=== PATIENT | male | born 1950 | race Caucasian/White ===

== ENCOUNTER → 2017-09-13 10:21 | Outpatient (CLI) | payer MEDICARE, SELFPAY ==
--- NOTE | 2017-09-13 10:26 | VDLE_ITS ---
Reason For Study: LEG SWELLING RIGHT LEFT GSV is normal. CFV is compressible, spontaneous, phasic, CFV is compressible, spontaneous, phasic, competent, and demonstrates normal competent and demonstrates normal augmentation. augmentation. Acute deep vein thrombosis is noted in the right femoral vein. Acute deep vein thrombosis is noted in the right popliteal vein. Acute deep vein thrombosis is noted in the right peroneal vein. Acute deep vein thrombosis is noted in the right posterior tibial vein. Acute deep vein thrombosis is noted in the right soleus vein. Procedure Exam performed in department. A preliminary report was called and/or faxed to Dr. Khanna. Interpretation Summary Acute deep vein thrombosis is noted in the right femoral vein. Acute deep vein thrombosis is noted in the right popliteal vein. Acute deep vein thrombosis is noted in the right tibio-peroneal trunk. Acute deep vein thrombosis is noted in the right peroneal vein. Acute deep vein thrombosis is noted in the right posterior tibial vein. Acute deep vein thrombosis is noted in the right soleus vein. The right common femoral vein is patent, compressible, and competent. The right greater saphenous vein appears patent and compressible segmentally. Ordering Physician: He Khanna Performed By: Carmela Segovia RVT
== END ==
PROVIDERS: Family Provider Family Medicine; PCP Family Medicine; Visit Provider Family Medicine
DX: M79.89 Other specified soft tissue disorders (principal); R60.9 Edema, unspecified; M79.669 Pain in unspecified lower leg
CPT/HCPCS: 93971

== ENCOUNTER → 2017-10-28 10:59 | Outpatient (CLI) | payer MEDICARE, SELFPAY ==
[2017-10-28 12:52] LABS: Erythrocyte Sedimentation Rate 25 mm/hr (0-20)
== END ==
PROVIDERS: Family Provider Family Medicine; PCP Family Medicine; Visit Provider Physician Assistant Surgical
DX: S82.62XK Displaced fracture of lateral malleolus of left fibula, subsequent encounter for closed fracture with nonunion (principal)
CPT/HCPCS: 36415; 85652; 86140

== ENCOUNTER → 2017-11-28 09:40 | Outpatient (CLI) | payer MEDICARE, SELFPAY ==
--- NOTE | 2017-11-28 09:40 | DT_ITS ---
This patient was seen during an EMR downtime November 28, 2017 - December 05, 2017. This patient may have a combination of paper and electronic documentation or all paper documentation. All documentation is viewable within the e-chart portion of [facility] for each patient visit.
[2017-12-04 03:10] LABS: BUN 17 mg/dL (7-18); BUN/Creat Ratio 13.2 RATIO (10-20); Creatinine, Serum 1.29 mg/dL (0.70-1.30); EST Glomerular Filtration Rate 59 mL/min (>60); Est Glom Filt Rate - Afr Amer 72 mL/min (>60); Glucose 188 mg/dL (74-106)
[2017-12-04 03:11] LABS: ALB/GLOB Ratio 0.9 RATIO (0.9-2.4); AST(SGOT) 17 U/L (15-37); Alanine Aminotransfer ALT/SGPT 31 U/L (16-61); Albumin, Serum 3.7 g/dL (3.2-5.0); Alkaline Phosphatase 105 U/L (45-117); Anion Gap 11 (5-15); Calcium,Total 8.6 mg/dL (8.5-10.1); Chloride 107 mmol/L (98-107); Cholesterol 209 mg/dL (200); High Density Lipoprotein 30 mg/dL; Potassium 3.9 mmol/L (3.5-5.1); Protein, Total 7.7 g/dL (6.4-8.2); Sodium Level 141 mmol/L (136-145); Triglycerides 278 mg/dL; Very Low Density Lipoprotein 56 mg/dL (5-40)
[2017-12-04 03:12] LABS: Hemoglobin A1c 8.3 % (4.2-6.3)
[2017-12-04 04:09] LABS: Hematocrit 43.8 % (40-54); Mean Corp Hgb Conc 34.2 g/gl (32-36); Mean Corpuscular Hgb 27.7 pg (27.0-32.0); Mean Platelet Vol. 11.7 fl (6.2-12.0); POSITIVE COUNT NO; POSITIVE DIFFERENTIAL NO; POSITIVE MORPHOLOGY NO; Platelet Count 169 K/mm3 (150-450); RBC Distribution Width CV 13.4 % (11.6-14.6); RBC Distribution Width SD 39.2 fl (35.1-43.9); Red Blood Count 5.41 M/mm3 (4.6-6.2); White Blood Count 6.2 K/mm3 (4.4-11.0)
[2017-12-04 04:10] LABS: Absolute Lymphocyte Count 1.33 X10^3/ul (0.83-4.51); Basophil# 0.01 X10^3/uL; Basophil% 0.2 % (0-1); Eosinophil# 0.15 X10^3/uL; Eosinophils% 2.4 % (0-5); Lymphocyte # 1.33 X10^3/ul (4.0); Lymphocyte % 21.5 % (19-41); Monocyte# 0.66 X10^3/uL; Monocyte% 10.6 % (0-10); Neutrophil # 4.02 X10^3/uL (2.7-7.7); Neutrophil % 64.8 % (47-70)
== END ==
PROVIDERS: Family Provider Family Medicine; PCP Family Medicine; Visit Provider Family Medicine
DX: E11.9 Type 2 diabetes mellitus without complications (principal); I10 Essential (primary) hypertension; E78.5 Hyperlipidemia, unspecified
CPT/HCPCS: 36415; 80053; 80061; 83036; 85025

== ENCOUNTER → 2017-12-14 09:00 | Outpatient (CLI) | payer MEDICARE, SELFPAY ==
[2017-12-14 12:19] LABS: Absolute Lymphocyte Count 1.44 X10^3/ul (0.83-4.51); Absolute Neutrophil Count 3.6 X10^3/uL (2.0-7.7); Basophil# 0.01 X10^3/uL; Basophil% 0.2 % (0-1); Eosinophil# 0.18 X10^3/uL; Eosinophils% 3.1 % (0-5); Hematocrit 45.1 % (40-54); Hemoglobin 15.2 g/dl (13.0-16.5); Lymphocyte # 1.44 X10^3/ul (4.0); Lymphocyte % 24.7 % (19-41); Mean Corp Hgb Conc 33.7 g/gl (32-36); Mean Corpuscular Hgb 27.5 pg (27.0-32.0); Mean Corpuscular Volume 81.6 fL (80-94); Mean Platelet Vol. 10.8 fl (6.2-12.0); Monocyte# 0.59 X10^3/uL; Monocyte% 10.1 % (0-10); Neutrophil # 3.61 X10^3/uL (2.7-7.7); Neutrophil % 61.7 % (47-70); POSITIVE COUNT NO; POSITIVE DIFFERENTIAL NO; POSITIVE MORPHOLOGY NO; Platelet Count 168 K/mm3 (150-450); RBC Distribution Width CV 13.4 % (11.6-14.6); RBC Distribution Width SD 39.8 fl (35.1-43.9); Red Blood Count 5.53 M/mm3 (4.6-6.2); White Blood Count 5.8 K/mm3 (4.4-11.0)
[2017-12-14 12:37] LABS: International Normalized Ratio 1.8; Prothrombin Time (Protime)PT. 21.2 SECONDS (11.7-14.9)
[2017-12-14 12:54] LABS: Anion Gap 8 (5-15); BUN 17 mg/dL (7-18); BUN/Creat Ratio 11.6 RATIO (10-20); Calcium,Total 9.3 mg/dL (8.5-10.1); Chloride 101 mmol/L (98-107); Creatinine, Serum 1.46 mg/dL (0.70-1.30); EST Glomerular Filtration Rate 51 mL/min (>60); Est Glom Filt Rate - Afr Amer 62 mL/min (>60); Glucose 200 mg/dL (74-106); Sodium Level 135 mmol/L (136-145)
== END ==
PROVIDERS: Family Provider Family Medicine; PCP Family Medicine; Visit Provider Family Medicine
DX: M10.9 Gout, unspecified (principal); R23.3 Spontaneous ecchymoses; I82.4Z1 Acute embolism and thrombosis of unspecified deep veins of right distal lower extremity; E11.9 Type 2 diabetes mellitus without complications
CPT/HCPCS: 36415; 80048; 84550; 85025; 85610

== ENCOUNTER → 2017-12-16 12:45 | Outpatient (CLI) | payer MEDICARE, SELFPAY ==
--- NOTE | 2017-12-16 12:47 | VDLE_ITS ---
Reason For Study: F/U DVT RLE RIGHT LEFT GSV is normal. CFV is compressible, spontaneous, phasic, CFV is compressible, spontaneous, phasic, competent, and demonstrates normal competent and demonstrates normal augmentation. augmentation. PTV is compressible. RT PerV is compressible. Rt FV, Rt PopV, and Rt T/P trunk are dilated and non compressible Rt SoleusV is compressible. Procedure Exam performed in department. A preliminary report was called and/or faxed to Dr. Khanna. Interpretation Summary Acute deep vein thrombosis is noted in the right femoral vein. Acute deep vein thrombosis is noted in the right popliteal vein. Acute deep vein thrombosis is noted in the right tibio-peroneal trunk. The remainder of the right lower extremity deep venous system is patent and compressible. The right common femoral vein is competent. The right greater saphenous vein appears patent and compressible segmentally. There has been improvement since a prior study on 09/13/2017. Ordering Physician: He Khanna Referring Physician: He Khanna Performed By: Patti Chávez, BRAD, RVT
== END ==
PROVIDERS: Family Provider Family Medicine; PCP Family Medicine; Visit Provider Family Medicine
DX: I82.4Z1 Acute embolism and thrombosis of unspecified deep veins of right distal lower extremity (principal)
CPT/HCPCS: 93971

== ENCOUNTER → 2018-02-21 09:25 | Outpatient (CLI) | payer MEDICARE, SELFPAY ==
[2018-02-21 12:28] LABS: Microalbumin:Creatinine Ratio 59.9 mg/g CRE (<30 mg/g CRE)
[2018-02-21 12:36] LABS: Cholesterol 200 mg/dL (200); High Density Lipoprotein 27 mg/dL; Triglycerides 246 mg/dL; Very Low Density Lipoprotein 49 mg/dL (5-40)
[2018-02-21 12:46] LABS: Hemoglobin A1c 7.6 % (4.2-6.3)
== END ==
LOC: LAB.FUTURE 08-23 00:35 → BFHLAB 03-19 13:55
PROVIDERS: Family Provider Family Medicine; PCP Family Medicine; Visit Provider Family Medicine
DX: E11.9 Type 2 diabetes mellitus without complications (principal); E78.5 Hyperlipidemia, unspecified
CPT/HCPCS: 36415; 80061; 82043; 82570; 83036

== ENCOUNTER → 2018-06-28 11:26 | Outpatient (CLI) | payer MEDICARE, SELFPAY ==
[2018-06-28 15:58] LABS: Anion Gap 8 (5-15); BUN 21 mg/dL (7-18); BUN/Creat Ratio 15.1 RATIO (10-20); Calcium,Total 8.8 mg/dL (8.5-10.1); Chloride 107 mmol/L (98-107); Cholesterol 207 mg/dL (200); Creatinine, Serum 1.39 mg/dL (0.70-1.30); EST Glomerular Filtration Rate 54 mL/min (>60); Est Glom Filt Rate - Afr Amer 65 mL/min (>60); Glucose 129 mg/dL (74-106); High Density Lipoprotein 31 mg/dL; Potassium 4.7 mmol/L (3.5-5.1); Sodium Level 140 mmol/L (136-145); Triglycerides 180 mg/dL; Very Low Density Lipoprotein 36 mg/dL (5-40)
[2018-06-28 16:04] LABS: Hemoglobin A1c 7.6 % (4.2-6.3)
[2018-06-28 16:08] LABS: Microalbumin:Creatinine Ratio 115.7 mg/g CRE (<30 mg/g CRE)
== END ==
LOC: LAB.FUTURE 01-17 01:46 → BFHLAB 03-19 13:54
PROVIDERS: Family Provider Family Medicine; PCP Family Medicine; Visit Provider Family Medicine
DX: E11.21 Type 2 diabetes mellitus with diabetic nephropathy (principal); I12.9 Hypertensive chronic kidney disease with stage 1 through stage 4 chronic kidney disease, or unspecified chronic kidney disease; E11.22 Type 2 diabetes mellitus with diabetic chronic kidney disease; N18.3 Chronic kidney disease, stage 3 (moderate); E78.5 Hyperlipidemia, unspecified; I82.4Z1 Acute embolism and thrombosis of unspecified deep veins of right distal lower extremity
CPT/HCPCS: 36415; 80048; 80061; 82043; 82570; 83036

== ENCOUNTER → 2018-07-17 09:40 | Outpatient (CLI) | payer MEDICARE, SELFPAY ==
--- NOTE | 2018-07-17 09:43 | VDLE_ITS ---
Reason For Study: CHRONIC DVT RIGHT GSV is normal. CFV is compressible, spontaneous, phasic, competent and demonstrates normal augmentation. PTV is compressible. RT PerV is compressible. Rt FV, POP V and T/P Trunk are NONCOMPRESSIBLE with intraluminal echoes consistent with chronic DVT. Procedure Exam performed in department. A preliminary report was called and/or faxed to Dr Khanna. Interpretation Summary Chronic venous changes are noted in the right femoral vein, popliteal vein, and tibio-peroneal trunk, which are non-compressible and demonstrate intraluminal echogenicity. The remainder of the right lower extremity deep venous system is patent and compressible. The right greater saphenous vein appears patent and compressible segmentally. Ordering Physician: He Khanna Referring Physician: He Khanna Performed By: Trini Zacarias, BRAD, RVT
--- OUTSIDE RECORDS SUMMARY | 2018-09-18 19:44 | XMS RPT_ITS ---
:1950 Author Organization OHIP Care Team Providers Name Role Phone He Khanna Attending Unavailable He Khanna Referring Unavailable He Khanna Primary Care Unavailable He Khanna Attending Unavailable He Khanna Primary Care Unavailable Jose Yusuf PA-C Attending Unavailable Jose Yusuf PA-C Referring Unavailable He Khanna Primary Care Unavailable He Khanna Attending Unavailable He Khanna Referring Unavailable He Khanna Primary Care Unavailable He Khanna Attending Unavailable He Khanna Primary Care Unavailable He Khanna Attending Unavailable He Khanna Primary Care Unavailable He Khanna Attending Unavailable He Khanna Referring Unavailable He Khanna Primary Care Unavailable He Khanna Attending Unavailable He Khanna Primary Care Unavailable He Khanna Attending Unavailable He Khanna Primary Care Unavailable PROBLEMS PROBLEMS DATE TYPE CONDITION / CODE ATTENDING STATUS SOURCE 02/20/2018 Unknown E11.9 - Type 2 He Khanna Active [facility] diabetes mellitus [facility] without Hospital complications / Repository E11.9(ICD-10) 02/20/2018 Unknown E78.5 - He Khanna Active [facility] Hyperlipidemia, Community unspecified / Hospital E78.5(ICD-10) Repository 12/16/2017 Unknown I82.4Z1 - Acute He Khanna Active [facility] embolism and Community thrombosis of Hospital unspecified deep Repository veins of right distal lower extremity / I82.4Z1(ICD-10) 09/13/2017 Unknown R60.9 - Edema, He Khanna Active [place] unspecified / Community R60.9(ICD-10) Hospital Repository 09/13/2017 Unknown M79.669 - Pain in He Khanna Active [place] unspecified lower Community leg / Hospital M79.669(ICD-10) Repository PROCEDURES PROCEDURES No Procedure Records FoundRESULTS RESULTS VENOUS DUPLEX LOWER Observed: 07/18/2018 Status: F Source: [place] EXTREMITY 4:03 PM [facility] REPOSITORY [facility] Cardiovascular Services [address] [place] [address] Venous Duplex US, Unilateral 07/17/18 0955 MR#: [id number] Acct: [id number] Name: SILVIANO MUELLER Nakia Rep #: [id number] : 1950 68 From: Alex Parish MD Attending Dr: He Khanna DO Status: REG CLI Ordering Dr: He Khanna DO Date: 07/17/18 Location: CVS Sex: M C Admitted: Reason For Study: CHRONIC DVT RIGHT GSV is normal. CFV is compressible, spontaneous, phasic, competent and demonstrates normal augmentation. PTV is compressible. RT PerV is compressible. Rt FV, POP V and T/P Trunk are NONCOMPRESSIBLE with intraluminal echoes consistent with chronic DVT. Procedure Exam performed in department. A preliminary report was called and/or faxed to Dr Khanna. Interpretation Summary Chronic venous changes are noted in the right femoral vein, popliteal vein, and tibio-peroneal trunk, which are non-compressible and demonstrate intraluminal echogenicity. The remainder of the right lower extremity deep venous system is patent and compressible. The right greater saphenous vein appears patent and compressible segmentally. Ordering Physician: He Khanna Referring Physician: He Khanna Performed By: Trini Zacarias, BRAD, RVT 07/18/18 1603 Date Alex Parish MD CC: He Khanna DO Date Dictated: 07/17/18 0955 Date Transcribed: 07/18/181602 Rn Bariatric: Signed BASIC METABOLIC Collected: 06/28/2018 Status: F Source: [place] PROFILE (BMP) 11:31 AM [facility] REPOSITORY TYPE CODE TESTS RESULT OUT OF RANGE REFERENCE UNITS LAB L501.0100 74-106 mg/dL High GLU 129 Result Comment: Fasting Glucose result greater than or equal to 126 mg/dL suggests DIABETES MELLITUS per A.D.A. criteria. Please note revised GLUCOSE reference range effective 2017. LAB L501.1000 7-18 mg/dL High BUN 21 LAB L501.1100 0.70-1.30 mg/dL High CREAT,SERUM 1.39 Result Comment: The validity of the calculated GFR AND GFRAA in patients over 70 years has not been determined. Clinical correlation is essential. LAB L501.1110 >60 mL/min Low EST GFR 54 Result Comment: Non- GFR Calc LAB L501.1115 >60 mL/min Normal EST GFR - AA 65 Result Comment: GFR Calc LAB L501.1300 10-20 RATIO Normal BUN/CRE 15.1 LAB L501.2200 8.5-10.1 mg/dL CA Normal 8.8 LAB L501.5300 136-145 mmol/L NA Normal 140 LAB L501.5600 3.5-5.1 mmol/L K Normal 4.7 LAB L501.5900 98-107 mmol/L CL Normal 107 LAB L501.6100 21.0-32.0 mmol/L Normal CO2 25.0 LAB L501.6200 5-15 Normal GAP 8 Performed By: #### L500.2500, L500.4100 #### [facility] [address] [place], [place], [id number] LIPID PROFILE Collected: 06/28/2018 Status: F Source: [place] 11:31 AM [facility] REPOSITORY TYPE CODE TESTS RESULT OUT OF RANGE REFERENCE UNITS LAB L501.4900 200 mg/dL High CHOL 207 Result Comment: <200 mg/dL Desirable 200-240 mg/dL Borderline >240 mg/dL High Risk LAB L501.5000 mg/dL Normal TRIG 180 Result Comment: The drugs N-Acetylcysteine and Metamizole may falsely depress this assay. Serum Triglycerides Reference Interval Normal <150 mg/dL Borderline high 150 - 199 mg/dL High 200 - 499 mg/dL Very High > or = 500 mg/dL LAB L501.6400 mg/dL Low HDL 31 Result Comment: The drugs N-Acetylcysteine and Metamizole may falsely depress this assay. Reference Range HDL <40 mg/dL Low HDL Cholesterol HDL >or= 60 mg/dL High HDL Cholesterol LAB L501.6500 0-130 mg/dL High LDL 140 LAB L501.6600 5-40 mg/dL Normal VLDL 36 Performed By: #### L500.2500, L500.4100 #### [facility] [address] [place], [place], [id number] HEMOGLOBIN A1C Collected: 06/28/2018 Status: F Source: [place] 11:31 AM [facility] REPOSITORY TYPE CODE TESTS RESULT OUT OF RANGE REFERENCE UNITS LAB L501.9985 4.2-6.3 % High HGB A1C 7.6 Performed By: #### L501.9985 #### [facility] [address] [place], [address] MICROALB:CREAT Collected: 06/28/2018 Status: F Source: [place] RATIO,RANDOM UR 11:31 AM [facility] REPOSITORY TYPE CODE TESTS RESULT OUT OF RANGE REFERENCE UNITS LAB L501.1200 NO RANGE EST. mg/dL Normal UR CREAT 134.00 LAB L502.0500 NO RANGE EST. mg/L Normal 155.0 MICROALBUMIN ,UR LAB L502.0600 <30 mg/g CRE mg/g CRE High 115.7 MALB:CREAT Performed By: #### L502.0250 #### [facility] [address] [place], [address] MICROALB:CREAT Collected: 02/21/2018 Status: F Source: [facility],[place] UR 9:27 AM [facility] REPOSITORY TYPE CODE TESTS RESULT OUT OF RANGE REFERENCE UNITS LAB L501.1200 NO RANGE EST. mg/dL Normal UR CREAT 227.00 LAB L502.0500 NO RANGE EST. mg/L Normal 136.0 MICROALBUMIN ,UR LAB L502.0600 <30 mg/g CRE mg/g CRE High 59.9 MALB:CREAT Performed By: #### L502.0250 #### [facility] [address] [place], [address] LIPID PROFILE Collected: 02/21/2018 Status: F Source: [place] 9:27 AM [facility] REPOSITORY TYPE CODE TESTS RESULT OUT OF RANGE REFERENCE UNITS LAB L501.4900 200 mg/dL Normal CHOL 200 Result Comment: <200 mg/dL Desirable 200-240 mg/dL Borderline >240 mg/dL High Risk LAB L501.5000 mg/dL High TRIG 246 Result Comment: The drugs N-Acetylcysteine and Metamizole may falsely depress this assay. Serum Triglycerides Reference Interval Normal <150 mg/dL Borderline high 150 - 199 mg/dL High 200 - 499 mg/dL Very High > or = 500 mg/dL LAB L501.6400 mg/dL Low HDL 27 Result Comment: The drugs N-Acetylcysteine and Metamizole may falsely depress this assay. Reference Range HDL <40 mg/dL Low HDL Cholesterol HDL >or= 60 mg/dL High HDL Cholesterol LAB L501.6500 0-130 mg/dL Normal LDL 124 LAB L501.6600 5-40 mg/dL High VLDL 49 Performed By: #### L500.4100 #### [facility] [address] [place], [address] HEMOGLOBIN A1C Collected: 02/21/2018 Status: F Source: [place] 9:27 AM [facility] REPOSITORY TYPE CODE TESTS RESULT OUT OF RANGE REFERENCE UNITS LAB L501.9985 4.2-6.3 % High HGB A1C 7.6 Performed By: #### L501.9985 #### [facility] [address] [place], [address] VENOUS DUPLEX LOWER Observed: 12/16/2017 Status: F Source: [place] EXTREMITY 2:07 PM [facility] REPOSITORY [facility] Cardiovascular Services [address] [place] [address] Venous Duplex US, Unilateral 12/16/17 1248 MR#: [id number] Acct: [id number] Name: SILVIANO MUELLER Rep #: [id number] : 1950 67 From: Alex Parish MD Attending Dr: He Khanna DO Status: REG CLI Ordering Dr: He Khanna DO Date: 12/16/17 Location: CVS Sex: M C Admitted: Reason For Study: F/U DVT RLE RIGHT LEFT GSV is normal. CFV is compressible, spontaneous, phasic, CFV is compressible, spontaneous, phasic, competent, and demonstrates normal competent and demonstrates normal augmentation. augmentation. PTV is compressible. RT PerV is compressible. Rt FV, Rt PopV, and Rt T/P trunk are dilated and non compressible Rt SoleusV is compressible. Procedure Exam performed in department. A preliminary report was called and/or faxed to Dr. Khanna. Interpretation Summary Acute deep vein thrombosis is noted in the right femoral vein. Acute deep vein thrombosis is noted in the right popliteal vein. Acute deep vein thrombosis is noted in the right tibio-peroneal trunk. The remainder of the right lower extremity deep venous system is patent and compressible. The right common femoral vein is competent. The right greater saphenous vein appears patent and compressible segmentally. There has been improvement since a prior study on 09/13/2017. Ordering Physician: He Khanna Referring Physician: He Khanna Performed By: Patti Chávez RDCS, RVT 12/16/17 1407 Date Alex Parish MD CC: He Khanna DO Date Dictated: 12/16/17 1248 Date Transcribed: 12/16/17 1407 Rn Bariatric: Signed DOWNTIME REPORT Observed: 12/15/2017 Status: F Source: [place] 1:17 PM [facility] REPOSITORY [facility] Medical Records Department [address] [place] [address] Downtime Report MR#: [id number] Acct: [id number] Name: SILVIANO MUELLER Rep #: [id number] : 1950 67 From: Asad Guevara PCP: He Khanna DO Status: REG CLI This patient was seen during an EMR downtime November 28, 2017 - December 05, 2017. This patient may have a combination of paper and electronic documentation or all paper documentation. All documentation is viewable within the e-chart portion of [facility] for each patient visit. CBC W/DIFF, AUTOMATED Collected: 12/14/2017 Status: F Source: [place] 9:02 AM [facility] REPOSITORY TYPE CODE TESTS RESULT OUT OF RANGE REFERENCE UNITS LAB L100.1000 4.4-11.0 K/mm3 Normal WBC 5.8 LAB L100.1200 4.6-6.2 M/mm3 Normal RBC 5.53 LAB L100.1300 13.0-16.5 g/dl Normal HGB 15.2 LAB L100.1400 40-54 % Normal HCT 45.1 LAB L100.1500 80-94 fL Normal MCV 81.6 LAB L100.1600 27.0-32.0 pg Normal MCH 27.5 LAB L100.1700 32-36 g/gl Normal MCHC 33.7 LAB L100.1810 11.6-14.6 % Normal RDW CV 13.4 LAB L100.1820 35.1-43.9 fl Normal RDW SD 39.8 LAB L100.1900 150-450 K/mm3 Normal PLT 168 LAB L100.2000 6.2-12.0 fl Normal MPV 10.8 LAB L100.2100 47-70 % Normal NEUT% 61.7 LAB L100.2200 19-41 % Normal LY% 24.7 LAB L100.2300 0-10 % High MONO% 10.1 LAB L100.2400 0-5 % Normal EO% 3.1 LAB L100.2500 0-1 % Normal BASO% 0.2 LAB L100.2550 0.0-0.9 % Normal IM GRAN % 0.200 Result Comment: IG% - Immature Granulocytes (promyelocytes, myelocytes and metamyelocytes) > 1% indicates that a LEFT SHIFT is Present. LAB L100.2620 2.0-7.7 X10 3/uL Normal Absolute Neut 3.6 LAB L100.2720 0.83-4.51 X10 3/ul Normal Absolute Lymph 1.44 Performed By: #### L100.0100 #### [facility] [address] [facility] [place], [place], [address] PROTHROMBIN TIME W/INR Collected: 12/14/2017 Status: F Source: [place] 9:02 AM [facility] REPOSITORY TYPE CODE TESTS RESULT OUT OF RANGE REFERENCE UNITS LAB L300.4150 11.7-14.9 SECONDS High PROTIME 21.2 LAB L300.4200 Normal INR 1.8 Performed By: #### L300.3900 #### [facility] [address] [facility] [place], [place], [address] BASIC METABOLIC Collected: 12/14/2017 Status: F Source: [place] PROFILE (BMP) 9:02 AM [facility] REPOSITORY TYPE CODE TESTS RESULT OUT OF RANGE REFERENCE UNITS LAB L501.0100 74-106 mg/dL High GLU 200 Result Comment: Glucose result greater than or equal to 200 mg/dL suggests DIABETES MELLITUS per A.D.A. criteria. Please note revised GLUCOSE reference range effective 2017. LAB L501.1000 7-18 mg/dL Normal BUN 17 LAB L501.1100 0.70-1.30 mg/dL High CREAT,SERUM 1.46 Result Comment: The validity of the calculated GFR AND GFRAA in patients over 70 years has not been determined. Clinical correlation is essential. LAB L501.1110 >60 mL/min Low EST GFR 51 Result Comment: Non- GFR Calc LAB L501.1115 >60 mL/min Normal EST GFR - AA 62 Result Comment: GFR Calc LAB L501.1300 10-20 RATIO Normal BUN/CRE 11.6 LAB L501.2200 8.5-10.1 mg/dL CA Normal 9.3 LAB L501.5300 136-145 mmol/L Low NA 135 LAB L501.5600 3.5-5.1 mmol/L K Normal 4.0 LAB L501.5900 98-107 mmol/L CL Normal 101 LAB L501.6100 21.0-32.0 mmol/L Normal CO2 26.0 LAB L501.6200 5-15 Normal GAP 8 Performed By: #### L500.2500, L501.1400 #### [facility] [address] [place], [place], [address] URIC ACID Collected: 12/14/2017 Status: F Source: [place] 9:02 AM [facility] REPOSITORY TYPE CODE TESTS RESULT OUT OF RANGE REFERENCE UNITS LAB L501.1400 3.5-7.2 mg/dL High URIC 8.0 Result Comment: The drugs N-Acetylcysteine and Metamizole may falsely depress this assay. Performed By: #### L500.2500, L501.1400 #### [facility] [address] [place], [address] COMPREHENSIVE METABOLIC Collected: 11/28/2017 Status: F Source: [place] MANNY 9:40 AM [facility] REPOSITORY Order Comment: RESULT(S) PREVIOUSLY REPORTED ON MANUAL REQUISITION DURING DOWNTIME. TYPE CODE TESTS RESULT OUT OF RANGE REFERENCE UNITS LAB L501.0100 74-106 mg/dL High GLU 188 Result Comment: Fasting Glucose result greater than or equal to 126 mg/dL suggests DIABETES MELLITUS per A.D.A. criteria. Please note revised GLUCOSE reference range effective 2017. LAB L501.1000 7-18 mg/dL Normal BUN 17 LAB L501.1100 0.70-1.30 mg/dL Normal CREAT,SERUM 1.29 Result Comment: The validity of the calculated GFR AND GFRAA in patients over 70 years has not been determined. Clinical correlation is essential. LAB L501.1110 >60 mL/min Low EST GFR 59 LAB L501.1115 >60 mL/min Normal EST GFR - AA 72 LAB L501.1300 10-20 RATIO Normal BUN/CRE 13.2 LAB L501.1500 6.4-8.2 g/dL Normal T PROT 7.7 LAB L501.1800 3.2-5.0 g/dL Normal ALB 3.7 LAB L501.1950 2.2-4.2 g/dL Normal GLOB 4.0 LAB L501.2000 0.9-2.4 RATIO Normal A/G 0.9 LAB L501.2200 8.5-10.1 mg/dL Normal CA 8.6 LAB L501.4100 15-37 U/L Normal AST 17 LAB L501.4305 45-117 U/L Normal ALK P 105 LAB L501.4405 16-61 U/L Normal ALT 31 LAB L501.4600 0.20-1.00 mg/dL Normal T BILI 1.00 LAB L501.5300 136-145 mmol/L Normal NA 141 LAB L501.5600 3.5-5.1 mmol/L Normal K 3.9 LAB L501.5900 98-107 mmol/L Normal CL 107 LAB L501.6100 21.0-32.0 mmol/L Normal CO2 23.0 LAB L501.6200 5-15 Normal GAP 11 Performed By: #### L500.4050, L500.4100 #### [facility] [address] [place], [address] LIPID PROFILE Collected: 11/28/2017 Status: F Source: [place] 9:40 AM [facility] REPOSITORY Order Comment: RESULT(S) PREVIOUSLY REPORTED ON MANUAL REQUISITION DURING DOWNTIME. TYPE CODE TESTS RESULT OUT OF RANGE REFERENCE UNITS LAB L501.4900 200 mg/dL High CHOL 209 Result Comment: <200 mg/dL Desirable 200-240 mg/dL Borderline >240 mg/dL High Risk LAB L501.5000 mg/dL High TRIG 278 Result Comment: The drugs N-Acetylcysteine and Metamizole may falsely depress this assay. Serum Triglycerides Reference Interval Normal <150 mg/dL Borderline high 150 - 199 mg/dL High 200 - 499 mg/dL Very High > or = 500 mg/dL LAB L501.6400 mg/dL Low HDL 30 Result Comment: The drugs N-Acetylcysteine and Metamizole may falsely depress this assay. Reference Range HDL <40 mg/dL Low HDL Cholesterol HDL >or= 60 mg/dL High HDL Cholesterol LAB L501.6500 0-130 mg/dL Normal LDL 123 LAB L501.6600 5-40 mg/dL High VLDL 56 Performed By: #### L500.4050, L500.4100 #### [facility] [address] [place], [address] HEMOGLOBIN A1C Collected: 11/28/2017 Status: F Source: [place] 9:40 AM [facility] REPOSITORY Order Comment: RESULT(S) PREVIOUSLY REPORTED ON MANUAL REQUISITION DURING DOWNTIME. TYPE CODE TESTS RESULT OUT OF RANGE REFERENCE UNITS LAB L501.9985 4.2-6.3 % High HGB A1C 8.3 Performed By: #### L501.9985 #### [facility] [address] [place], [address] CBC W/DIFF, AUTOMATED Collected: 11/28/2017 Status: F Source: [place] 9:40 AM [facility] REPOSITORY Order Comment: RESULT(S) PREVIOUSLY REPORTED ON MANUAL REQUISITION DURING DOWNTIME. TYPE CODE TESTS RESULT OUT OF RANGE REFERENCE UNITS LAB L100.1000 4.4-11.0 K/mm3 Normal WBC 6.2 LAB L100.1200 4.6-6.2 M/mm3 Normal RBC 5.41 LAB L100.1300 13.0-16.5 g/dl Normal HGB 15.0 LAB L100.1400 40-54 % Normal HCT 43.8 LAB L100.1500 80-94 fL Normal MCV 81.0 LAB L100.1600 27.0-32.0 pg Normal MCH 27.7 LAB L100.1700 32-36 g/gl Normal MCHC 34.2 LAB L100.1810 11.6-14.6 % Normal RDW CV 13.4 LAB L100.1820 35.1-43.9 fl Normal RDW SD 39.2 LAB L100.1900 150-450 K/mm3 Normal PLT 169 LAB L100.2000 6.2-12.0 fl Normal MPV 11.7 LAB L100.2100 47-70 % Normal NEUT% 64.8 LAB L100.2200 19-41 % Normal LY% 21.5 LAB L100.2300 0-10 % High MONO% 10.6 LAB L100.2400 0-5 % Normal EO% 2.4 LAB L100.2500 0-1 % Normal BASO% 0.2 LAB L100.2550 0.0-0.9 % Normal IM GRAN % 0.500 Result Comment: IG% - Immature Granulocytes (promyelocytes, myelocytes and metamyelocytes) > 1% indicates that a LEFT SHIFT is Present. LAB L100.2620 2.0-7.7 X10 3/uL Normal Absolute Neut 4.0 LAB L100.2720 0.83-4.51 X10 3/ul Normal Absolute Lymph 1.33 Performed By: #### L100.0100 #### [facility] [address] [place], [place], [address] ERYTHROCYTE SED RATE Collected: 10/28/2017 Status: F Source: [place] 11:05 AM [facility] REPOSITORY TYPE CODE TESTS RESULT OUT OF RANGE REFERENCE UNITS LAB L102.0000 0-20 mm/hr High SED RATE 25 Performed By: #### L101.9900 #### [facility] [address] [place], [address] CRP Collected: 10/28/2017 Status: F Source: [place] 11:05 AM [facility] REPOSITORY TYPE CODE TESTS RESULT OUT OF RANGE REFERENCE UNITS LAB L501.6710 0.0-3.0 mg/L High 11.60 C-REACTIVE PROT Result Comment: C-Reactive Protein (CRP) provides useful information for the diagnosis, therapy and monitoring of inflammatory processes and associated diseases. For the evaluation of Relative Risk for Cardiovascular Disease, a High Sensitivity CRP (HSCRP) should be ordered. Performed By: #### L501.6710 #### [facility] [address] [place], [address] VENOUS DUPLEX LOWER Observed: 09/15/2017 Status: F Source: [place] EXTREMITY 8:11 AM [facility] REPOSITORY [facility] Cardiovascular Services [address] [place] [address] Venous Duplex US, Unilateral 09/13/17 1030 MR#: [id number] Acct: [id number] Name: MATTYMERCEDESSILVIANO Nakia Rep #: [id number] : 1950 67 From: Alex Parish MD Attending Dr: He Khanna DO Status: REG CLI Ordering Dr: He Khanna DO Date: 09/13/17 Location: CVS Sex: M C Admitted: Reason For Study: LEG SWELLING RIGHT LEFT GSV is normal. CFV is compressible, spontaneous, phasic, CFV is compressible, spontaneous, phasic, competent, and demonstrates normal competent and demonstrates normal augmentation. augmentation. Acute deep vein thrombosis is noted in the right femoral vein. Acute deep vein thrombosis is noted in the right popliteal vein. Acute deep vein thrombosis is noted in the right peroneal vein. Acute deep vein thrombosis is noted in the right posterior tibial vein. Acute deep vein thrombosis is noted in the right soleus vein. Procedure Exam performed in department. A preliminary report was called and/or faxed to Dr. Khanna. Interpretation Summary Acute deep vein thrombosis is noted in the right femoral vein. Acute deep vein thrombosis is noted in the right popliteal vein. Acute deep vein thrombosis is noted in the right tibio-peroneal trunk. Acute deep vein thrombosis is noted in the right peroneal vein. Acute deep vein thrombosis is noted in the right posterior tibial vein. Acute deep vein thrombosis is noted in the right soleus vein. The right common femoral vein is patent, compressible, and competent. The right greater saphenous vein appears patent and compressible segmentally. Ordering Physician: He Khanna Performed By: Carmela Segovia RVT 09/15/17 0811 Date Alex Parish MD CC: He Khanna DO Date Dictated: 09/13/17 1030 Date Transcribed: 09/15/17 0811 Rn Bariatric: Signed ALLERGIES ALLERGIES DATE TYPE / CODE NAME / CODE REACTION SEVERITY SOURCE 12/02/2016 Drug Penicillins/ Unknown Unknown [facility] Allergy/4160 [id number]([facility] 15137(SNOMED XNORM) Repository CT) ENCOUNTERS ENCOUNTERS ADMIT/DISCHARGE ACCOUNT ADMITTING ENCOUNTER LOCATION SOURCE NUMBER CLASS 07/17/2018 [id number] Ambulatory [facility] [place] 2 [facility] ing:[facility] Repository 06/28/2018 [id number] Ambulatory [facility] [place] 4 [facility] ing:LAB.FUTUR Repository E 02/26/2018 [id number] Ambulatory [place] 6 [facility] ing:LAB.FUTUR Repository E 02/21/2018 [id number] Ambulatory Kathy Kathy 6 [facility] ing:LAB.FUTUR Repository E 12/16/2017 [id number] Ambulatory Kathy [place] 7 [facility] ing:[facility] Repository 12/14/2017 [id number] Ambulatory Kathy Kathy 2 [facility] ing:BFHLAB Repository 11/28/2017 [id number] Ambulatory [place] Kathy 9 [facility] ing:BFHLAB Repository 10/28/2017 [id number] Ambulatory [place] [facility] 1 [facility] ing:LAB Repository 09/13/2017 [id number] Ambulatory [place] [facility] 7 [facility] ing:[facility] Repository PAYERS PAYERS ENCOUNTER GUARANTOR PAYER SUBSCRIBER SOURCE 07/17/2018 SILVIANO D Primary SILVIANO D [place] [id number] TR Insurance:HUMANA GORTNERDOB: [place] [address], [place] MED[place] PPOPolicy [id number] [facility] [address]Fub: [phone]) Number: Repository [phone] () [id number] Date:[id number] [address]WP: 07/17/2018 Secondary NOT GIVENUNK [place] Insurance:SELF PAY [facility] Number: Effective Repository Date:2018-07-07 06/28/2018 SILVIANO D Primary SILVIANO D [place] [id number] TR Insurance:HUMANA GORTNERDOB: [place] [address] PPOPolicy [id number] Hospital [address]Jgx: [phone]) Number: Repository [phone] () [id number] Date:[id number] [address]TM: 06/28/2018 Secondary SILVIANO D Kathy Insurance:MEDICARE GORTNERDOB: [facility] PART A [facility] [id number] [facility] Number: Repository [id number] Date:2018-02-28 06/28/2018 Tertiary NOT GIVENUNK [place] Insurance:SELF PAY [facility] Number: Effective Repository Date:2018-02-28 02/26/2018 SILVIANO D Primary SILVIANO D Kathy [id number] TR Insurance:HUMANA GORTNERDOB: [place] [address] PPOPolicy [id number] Hospital [address]Plp: [phone]) Number: Repository [phone] () [id number] Date:[id number] [address]WP: 02/26/2018 Secondary NOT GIVENUNK Kathy Insurance:SELF PAY [facility] Number: Effective Repository Date:2018-02-20 02/21/2018 SILVIANO D Primary SILVIANO D Kathy [id number] TR Insurance:HUMANA GORTNERDOB: [place] [address] PPOPolicy [id number] Hospital [address]Xvu: ([phone]) Number: Repository [phone] () [id number] Date:[id number] [address] [address]DZ: 02/21/2018 Secondary NOT GIVENUNK [place] Insurance:SELF PAY [facility] Number: Effective Repository Date:2017-12-06 12/16/2017 SILVIANO D Primary SILVIANO D [place] [id number] TR Insurance:HUMANA GORTNERDOB: [place] [address] PPOPolicy [id number] Hospital [address]Xzh: ([phone]) Number: Repository [phone] () [id number] Date:[id number] [address] [address]KR: 12/16/2017 Secondary NOT GIVENUNK Kathy Insurance:SELF PAY [facility] Number: Effective Repository Date:2017-12-12 12/14/2017 SILVIANO D Primary SILVIANO D Kathy [id number] TR Insurance:HUMANA GORTNERDOB: [place] PPOPolicy [id number] [address]Ncg: [phone]) Number: Repository [phone] () [id number] Date:1285-81-71ME [address] [address]TC: 12/14/2017 Secondary NOT GIVENUNK [place] Insurance:SELF PAY [facility] Number: Effective Repository Date:2017-12-14 11/28/2017 SILVIANO D Primary SILVIANO D [place] [id number] TR Insurance:HUMANA GORTNERDOB: [place] PPOPolicy [id number] Hospital [address]Bgq: [phone] Number: Repository [phone] (HP) [id number] Date:6024-20-03OA [address] [address]UM: 11/28/2017 Secondary NOT GIVENUNK [place] Insurance:SELF PAY [facility] Number: Effective Repository Date:2017-11-28 10/28/2017 Silviano D Primary Silviano D Kathy [id number] TR Insurance:HUMANA GortnerDOB: [place] [address] PPOPolicy [id number] [address]Apa: Number: Repository [phone] [id number] (HP) Date:4312-19-69GF [address] [address]EC: 10/28/2017 Secondary NOT GIVENUNK [place] Insurance:SELF PAY [facility] Number: Effective Repository Date:2017-10-28 09/13/2017 Silviano D Primary Silviano D [place] [id number] TR Insurance:HUMANA GortnerDOB: [place] [address] PPOPolicy [id number] [address]Gvg: Number: Repository [phone] [id number] (HP) Date:1983-59-56UP [address] [address]HA: 09/13/2017 Secondary NOT GIVENUNK [place] Insurance:SELF PAY [facility] Number: Effective Repository Date:2017-09-13
== END ==
PROVIDERS: Family Provider Family Medicine; PCP Family Medicine; Referring Provider Family Medicine; Visit Provider Family Medicine
DX: I82.4Z1 Acute embolism and thrombosis of unspecified deep veins of right distal lower extremity (principal)
CPT/HCPCS: 93971

== ENCOUNTER → 2018-10-25 | Outpatient (CLI) | payer MEDICARE, SELFPAY ==
[2018-10-25 12:29] LABS: Hemoglobin A1c 6.7 % (4.2-6.3)
[2018-10-25 12:34] LABS: AST(SGOT) 17 U/L (15-37); Alanine Aminotransfer ALT/SGPT 26 U/L (16-61); Albumin, Serum 3.8 g/dL (3.2-5.0); Alkaline Phosphatase 88 U/L (45-117); Anion Gap 6 (5-15); BUN 24 mg/dL (7-18); BUN/Creat Ratio 17.5 RATIO (10-20); Calcium,Total 8.9 mg/dL (8.5-10.1); Chloride 105 mmol/L (98-107); Cholesterol 249 mg/dL (200); Creatinine, Serum 1.37 mg/dL (0.70-1.30); EST Glomerular Filtration Rate 55 mL/min (>60); Est Glom Filt Rate - Afr Amer 66 mL/min (>60); Globulin 3.8 g/dL (2.2-4.2); Glucose 126 mg/dL (74-106); High Density Lipoprotein 36 mg/dL; Potassium 4.2 mmol/L (3.5-5.1); Protein, Total 7.6 g/dL (6.4-8.2); Sodium Level 137 mmol/L (136-145); Triglycerides 164 mg/dL; Very Low Density Lipoprotein 33 mg/dL (5-40)
[2018-10-25 12:35] LABS: Microalbumin:Creatinine Ratio 85.2 mg/g CRE (<30 mg/g CRE)
== END | disposition home or self-care (01) ==
LOC: BFHLAB 10:21
PROVIDERS: Family Provider Family Medicine; PCP Family Medicine; Visit Provider Family Medicine
DX: E11.21 Type 2 diabetes mellitus with diabetic nephropathy (principal); E78.5 Hyperlipidemia, unspecified; N18.3 Chronic kidney disease, stage 3 (moderate)
CPT/HCPCS: 36415; 80053; 80061; 82043; 82570; 83036

== ENCOUNTER → 2019-02-22 | Outpatient (CLI) | payer MEDICARE, SELFPAY ==
[2019-02-22 12:18] LABS: Absolute Lymphocyte Count 1.22 X10^3/uL (0.83-4.51); Basophil# 0.02 X10^3/uL; Basophil% 0.3 % (0-1); Eosinophil# 0.22 X10^3/uL; Eosinophils% 3.1 % (0-5); Hematocrit 46.1 % (40-54); Lymphocyte # 1.22 X10^3/ul (4.0); Lymphocyte % 16.9 % (19-41); Mean Corp Hgb Conc 32.5 g/dL (32-36); Mean Corpuscular Hgb 27.2 pg (27.0-32.0); Mean Corpuscular Volume 83.5 fL (80-94); Mean Platelet Vol. 11.1 fl (6.2-12.0); Monocyte# 0.68 X10^3/uL; Monocyte% 9.4 % (0-10); NRBC Flagged by Analyzer 0 % (0-5); Neutrophil # 5.04 X10^3/uL (2.7-7.7); Neutrophil % 69.9 % (47-70); Platelet Count 170 K/mm3 (150-450); RBC Distribution Width CV 13.4 % (11.6-14.6); RBC Distribution Width SD 41.2 fl (35.1-43.9); Red Blood Count 5.52 M/mm3 (4.6-6.2); White Blood Count 7.2 K/mm3 (4.4-11.0)
[2019-02-22 12:24] LABS: International Normalized Ratio 2.6; Prothrombin Time (Protime)PT. 28.1 SECONDS (11.7-14.9)
[2019-02-22 12:42] LABS: Cholesterol 217 mg/dL (200); High Density Lipoprotein 37 mg/dL; Triglycerides 246 mg/dL; Very Low Density Lipoprotein 49 mg/dL (5-40)
[2019-02-22 12:44] LABS: Hemoglobin A1c 6.8 % (4.2-6.3)
== END | disposition home or self-care (01) ==
LOC: LAB.FUTURE 09:01
PROVIDERS: Family Provider Family Medicine; PCP Family Medicine; Visit Provider Family Medicine
DX: E11.21 Type 2 diabetes mellitus with diabetic nephropathy (principal); E78.5 Hyperlipidemia, unspecified; Z51.81 Encounter for therapeutic drug level monitoring; I82.4Z1 Acute embolism and thrombosis of unspecified deep veins of right distal lower extremity
CPT/HCPCS: 36415; 80061; 83036; 85025; 85610

== ENCOUNTER → 2019-11-08 | Outpatient (CLI) | payer MEDICARE, SELFPAY ==
[2019-11-08 14:20] LABS: Prothrombin Time Fingerstick 27.5 SEC (11.9-14.4)
== END | disposition home or self-care (01) ==
PROVIDERS: Family Provider Family Medicine; PCP Family Medicine; Referring Provider Family Medicine; Visit Provider Family Medicine
DX: E11.21 Type 2 diabetes mellitus with diabetic nephropathy (principal); I10 Essential (primary) hypertension; E78.5 Hyperlipidemia, unspecified; Z12.5 Encounter for screening for malignant neoplasm of prostate; Z51.81 Encounter for therapeutic drug level monitoring
CPT/HCPCS: 36416; 85610

== ENCOUNTER → 2020-03-11 | Outpatient (CLI) | payer MEDICARE, SELFPAY ==
[2020-03-11 12:37] LABS: Absolute Lymphocyte Count 1.36 X10^3/uL (0.83-4.51); Absolute Neutrophil Count 3.9 X10^3/uL (2.0-7.7); Basophil# 0.02 X10^3/uL; Basophil% 0.3 % (0-1); Eosinophil# 0.24 X10^3/uL; Eosinophils% 3.9 % (0-5); Hematocrit 44.2 % (40-54); Hemoglobin 14.6 g/dL (13.0-16.5); Lymphocyte # 1.36 X10^3/ul (4.0); Lymphocyte % 21.9 % (19-41); Mean Corpuscular Hgb 27.5 pg (27.0-32.0); Mean Corpuscular Volume 83.4 fL (80-94); Mean Platelet Vol. 10.9 fl (6.2-12.0); Monocyte# 0.64 X10^3/uL; Monocyte% 10.3 % (0-10); NRBC Flagged by Analyzer 0 % (0-5); Neutrophil # 3.93 X10^3/uL (2.7-7.7); Neutrophil % 63.1 % (47-70); Platelet Count 196 K/mm3 (150-450); RBC Distribution Width CV 12.8 % (11.6-14.6); RBC Distribution Width SD 38.8 fl (35.1-43.9); White Blood Count 6.2 K/mm3 (4.4-11.0)
[2020-03-11 12:41] LABS: Prothrombin Time (Protime)PT. 30.9 SECONDS (11.7-14.9)
[2020-03-11 12:43] LABS: ALB/GLOB Ratio 0.9 RATIO (0.9-2.4); AST(SGOT) 21 U/L (15-37); Alanine Aminotransfer ALT/SGPT 28 U/L (16-61); Albumin, Serum 3.6 g/dL (3.2-5.0); Alkaline Phosphatase 87 U/L (45-117); Anion Gap 8 (5-15); BUN 24 mg/dL (7-18); BUN/Creat Ratio 18.3 RATIO (10-20); Calcium,Total 8.6 mg/dL (8.5-10.1); Chloride 106 mmol/L (98-107); Cholesterol 234 mg/dL (200); Creatinine, Serum 1.31 mg/dL (0.70-1.30); EST Glomerular Filtration Rate 58 mL/min (>60); Est Glom Filt Rate - Afr Amer 70 mL/min (>60); Globulin 3.9 g/dL (2.2-4.2); Glucose 126 mg/dL (74-106); High Density Lipoprotein 30 mg/dL; PSA,Total - Annual Screen 9.21 ng/mL (0.00-4.00); Potassium 3.7 mmol/L (3.5-5.1); Protein, Total 7.5 g/dL (6.4-8.2); Sodium Level 140 mmol/L (136-145); Triglycerides 250 mg/dL; Very Low Density Lipoprotein 50 mg/dL (5-40)
[2020-03-11 12:46] LABS: Hemoglobin A1c 6.8 % (3.8-5.6)
[2020-03-11 12:48] LABS: Microalbumin:Creatinine Ratio 98.1 mg/g CRE (<30 mg/g CRE)
== END | disposition home or self-care (01) ==
PROVIDERS: PCP Family Medicine; Visit Provider Family Medicine
DX: E11.21 Type 2 diabetes mellitus with diabetic nephropathy (principal); I10 Essential (primary) hypertension; E78.5 Hyperlipidemia, unspecified; Z51.81 Encounter for therapeutic drug level monitoring; Z12.5 Encounter for screening for malignant neoplasm of prostate
CPT/HCPCS: 36415; 80053; 80061; 82043; 82570; 83036; 84153; 85025; 85610; G0103

== ENCOUNTER → 2020-10-20 10:09 | Outpatient (CLI) | payer MEDICARE, SELFPAY ==
[2020-10-20 12:30] LABS: International Normalized Ratio 2.1
[2020-10-20 13:16] LABS: ALB/GLOB Ratio 0.9 RATIO (0.9-2.4); AST(SGOT) 14 U/L (15-37); Alanine Aminotransfer ALT/SGPT 25 U/L (16-61); Albumin, Serum 3.7 g/dL (3.2-5.0); Alkaline Phosphatase 97 U/L (45-117); Anion Gap 7 (5-15); BUN 20 mg/dL (7-18); BUN/Creat Ratio 14.8 RATIO (10-20); Calcium,Total 8.9 mg/dL (8.5-10.1); Chloride 108 mmol/L (98-107); Cholesterol 236 mg/dL (200); Creatinine, Serum 1.35 mg/dL (0.70-1.30); EST Glomerular Filtration Rate 55 mL/min (>60); Est Glom Filt Rate - Afr Amer 67 mL/min (>60); Globulin 3.9 g/dL (2.2-4.2); Glucose 110 mg/dL (74-106); High Density Lipoprotein 34 mg/dL; Potassium 3.9 mmol/L (3.5-5.1); Protein, Total 7.6 g/dL (6.4-8.2); Sodium Level 139 mmol/L (136-145); Triglycerides 203 mg/dL; Very Low Density Lipoprotein 41 mg/dL (5-40)
[2020-10-20 13:20] LABS: Microalbumin,Random Urine 72.4 mg/L (NO RANGE EST.); Microalbumin:Creatinine Ratio 52.5 mg/g CRE (<30 mg/g CRE)
[2020-10-20 13:27] LABS: Hemoglobin A1c 6.4 % (3.8-5.6)
[2020-10-21 12:33] LABS: PSA, Free 0.82 ng/mL; PSA, Free % 8.6 % (.); PSA, Total Ultrasensitive 9.5 ng/mL (0.0-4.0)
== END ==
PROVIDERS: PCP Family Medicine; Referring Provider Family Medicine; Visit Provider Family Medicine
DX: E11.21 Type 2 diabetes mellitus with diabetic nephropathy (principal); E78.5 Hyperlipidemia, unspecified; R97.20 Elevated prostate specific antigen [PSA]; I12.9 Hypertensive chronic kidney disease with stage 1 through stage 4 chronic kidney disease, or unspecified chronic kidney disease; N18.30 Chronic kidney disease, stage 3 unspecified; Z79.01 Long term (current) use of anticoagulants
CPT/HCPCS: 36415; 80053; 80061; 82043; 82570; 83036; 84153; 84154; 85610

== ENCOUNTER 2021-10-26 11:25 | Emergency (ER) | payer MEDICARE, SELFPAY ==
[2021-10-26 11:26] VITALS: BP 164/95; PULSE 90; RESP 18; TEMP 36.6; O2SAT 95; BMI 30.4
--- NOTE | 2021-10-26 12:10 | RAD_ITS ---
STUDY: X-RAY - RIGHT WRIST REASON FOR EXAM: Right wrist pain and swelling, right wrist injury. TECHNIQUE: 3 view(s) of the wrist were obtained. COMPARISON: Radiographs 12/02/2016. FINDINGS: Normal visualized distal radius and ulna. Normal radiocarpal articulation. Normal distal radioulnar articulation. Normal carpal bones. Normal carpal articulations. Normal carpometacarpal articulation of the thumb. Normal second through fifth carpometacarpal articulations. Normal visualized metacarpal bones. There is a small ossicle at the distal aspect of the ulnar styloid process as on the prior study. RAD/Wrist min 3 Views IMPRESSION: Small chronic ossicle at the distal aspect of the ulnar styloid process. Otherwise, unremarkable x-ray examination of the right wrist. Electronically Signed: Keshav Sinclair MD at 12:46 EDT ,
[2021-10-26 12:15] LABS: Absolute Lymphocyte Count 1.24 X10^3/uL (0.83-4.51); Absolute Neutrophil Count 7.4 X10^3/uL (2.0-7.7); Basophil# 0.02 X10^3/uL; Basophil% 0.2 % (0-1); Eosinophil# 0.03 X10^3/uL; Eosinophils% 0.3 % (0-5); Hematocrit 44.1 % (40-54); Hemoglobin 14.4 g/dL (13.0-16.5); Lymphocyte # 1.24 X10^3/ul (0.83-4.51); Lymphocyte % 12.8 % (19-41); Mean Corp Hgb Conc 32.7 g/dL (32-36); Mean Corpuscular Hgb 27.2 pg (27.0-32.0); Mean Corpuscular Volume 83.4 fL (80-94); Mean Platelet Vol. 10.4 fl (6.2-12.0); Monocyte# 0.99 X10^3/uL; Monocyte% 10.2 % (0-10); NRBC Flagged by Analyzer 0 % (0-5); Neutrophil # 7.37 X10^3/uL (2.7-7.7); Neutrophil % 76.1 % (47-70); Platelet Count 165 K/mm3 (150-450); RBC Distribution Width CV 13.4 % (11.6-14.6); RBC Distribution Width SD 41.1 fl (35.1-43.9); Red Blood Count 5.29 M/mm3 (4.6-6.2); White Blood Count 9.7 K/mm3 (4.4-11.0)
[2021-10-26 12:37] LABS: Anion Gap 6 (5-15); BUN 17 mg/dL (7-18); BUN/Creat Ratio 11.6 RATIO (10-20); Calcium,Total 8.9 mg/dL (8.5-10.1); Chloride 104 mmol/L (98-107); Creatinine, Serum 1.47 mg/dL (0.70-1.30); EST Glomerular Filtration Rate 50 mL/min (>60); Est Glom Filt Rate - Afr Amer 61 mL/min (>60); Estimated Creatinine Clearance 44.59 ml/min; Glucose 186 mg/dL (74-106); Potassium 3.9 mmol/L (3.5-5.1); Sodium Level 135 mmol/L (136-145); Uric Acid 8.7 mg/dL (3.5-7.2)
--- NOTE | 2021-10-26 12:50 | EDS_ITS ---
HPI History of Present Illness Chief Complaint: Upper Extremity Injury Informant: patient and spouse/S.O. Narrative Narrative: 71-year-old male presenting to the emergency department with a swollen painful right wrist. Patient states that on Tuesday [place] when he lost his balance and fell down. States that he injured the wrist but it was not painful and was not bothering him afterwards. The next day he started noticing some pain and some swelling and now notes that the wrist to be red warm swollen and more painful. He took a oxycodone for at home. He denies any breaks in the skin. He states he does not have a formal diagnosis of gout but does occasionally get pain in his right great toe/foot. He has a diabetic and is on Coumadin. [facility] Medical History DVT (deep venous thrombosis) Heart attack Hypercholesteremia Hypertension Pre-diabetes Home Medications cetirizine [Zyrtec] 10 mg PO DAILY 11/30/15 [History Last Taken Unknown] diltiazem HCl 240 mg PO DAILY 11/30/15 [History Last Taken Unknown] metoprolol tartrate 50 mg PO BID 11/30/15 [History Last Taken Unknown] fluticasone propionate [Flonase Allergy Relief] 1 spray NS BID 12/02/16 [History Last Taken Unknown] glipizide 2.5 mg PO DAILY 10/26/21 [History Last Taken Unknown] warfarin 5 mg PO DAILY 10/26/21 [History Last Taken Unknown] Allergy/AdvReac Type Severity Reaction Status Date / Time Penicillins Allergy Unknown Verified 10/26/21 11:27 Surgical History History of ankle surgery Social History (Updated 10/26/21 @ 12:[address] Faraz Phillips DO) current gender identity: male Smoking Status: Never smoker ROS ROS ED Constitutional Constitutional ED: Denies chills, fever(s) or weight loss Eyes Eyes: Denies change in vision or diplopia ENT ENT ED: Denies ear pain, rhinorrhea or sore throat Cardiovascular Cardiovascular: Denies chest pain, orthopnea, palpitations or racing heartbeat Respiratory/Chest Respiratory/Chest: Denies cough, dyspnea or orthopnea Gastrointestinal Gastrointestinal: Denies abdominal pain, diarrhea, nausea or vomiting Genitourinary Genitourinary ED: Denies dysuria, hematuria or urinary frequency Musculoskeletal Musculoskeletal: Reports other Details: Right wrist pain ; Denies arthralgias or myalgias Integumentary Denies abscess or rash Neurologic Neurologic: Denies headache(s) or weakness Psychiatric Psychiatric: Denies anxiety, depression, suicidal ideation or suicidal thoughts Endocrine Endocrinology: Denies polydipsia, polyphagia or polyuria Allergic/Immunologic Allergic/Immunologic ED: Denies mouth swelling, tongue swelling or urticaria EXAM Physical Exam Const Vital Signs: 10/26/21 11:26 Temperature 97.9 F Temperature Source Temporal Pulse Rate 90 Respiratory Rate 18 Blood Pressure 164/95 H Blood Pressure Mean 118 Pulse Ox 95 Oxygen Delivery Method Room Air Positive well nourished and well developed General Appearance ED: well developed HEENT Reports normocephalic, head/scalp atraumatic and moist mucous membranes normocephalic and atraumatic; Negative for tenderness Eyes PERRL and EOMs intact bilaterally Neck no lymphadenopathy, supple and no JVD Resp normal respiratory effort and clear to auscultation bilaterally Cardio regular rate, regular rhythm and no murmurs GI normal to inspection, nondistended, normoactive bowel sounds and non-tender Palpation: soft Back/Spine no CVA tenderness and normal ROM Extremity Extremity Narrative: The right wrist demonstrates swelling from the dorsum of the hand up onto the wrist. There is erythema around the wrist joint on the dorsal surface. I do not appreciate any breaks in the skin. There is increased warmth. Neurovascularly appears intact. General Extremety ED: Yes edema General Extremity: edema Neuro oriented x3 and CN's II-XII intact bilaterally Sensorium / Orientation: alert Motor Exam: strength 5/5 throughout Psych mental status grossly normal Mood & Affect: Negative for depressed or tearful Skin no rashes or lesions noted and no wounds MDM MDM MDM Narrative Medical decision making narrative: Patient's white count is 9.7. Creatinine 1.47 with a glucose of 186. Uric acid is 8.7. Interpretation of the plain films of the right wrist is soft tissue edema and a chronic ossicle near the ulnar styloid process but no acute injury. Patient will be started on prednisone for presumed gout. Wrist splint for support. I will write for pain medication. Lab Data Attestation: I reviewed the patient's lab results. Labs: Laboratory Results - last 24 hr 10/26/21 10/26/21 12:00 12:00 WBC 9.7 RBC 5.29 Hgb 14.4 Hct 44.1 MCV 83.4 MCH 27.2 MCHC 32.7 RDW Std Deviation 41.1 RDW Coeff of Yonny 13.4 Plt Count 165 MPV 10.4 Immature Gran % (Auto) 0.400 Neut % (Auto) 76.1 H Lymph % (Auto) 12.8 L Desha % (Auto) 10.2 H Eos % (Auto) 0.3 Baso % (Auto) 0.2 Absolute Neuts (auto) 7.4 Absolute Lymphs (auto) 1.24 Nucleated RBC % 0 Sodium 135 L Potassium 3.9 Chloride 104 Carbon Dioxide 25.0 Anion Gap 6 BUN 17 Creatinine 1.47 H Estim Creat Clear Calc 44.59 Est GFR (MDRD) Af Amer 61 Est GFR (MDRD) Non-Af 50 L BUN/Creatinine Ratio 11.6 Glucose 186 H Uric Acid 8.7 H Calcium 8.9 Radiography Diagnostic Testing: Clinical Impression(s) from Imaging Studies Wrist X-Ray 10/26/21 12:10 IMPRESSION: Small chronic ossicle at the distal aspect of the ulnar styloid process. Otherwise, unremarkable x-ray examination of the right wrist. Electronically Signed: Keshav Sinclair MD at 12:46 EDT Reading Location ID and State: [address] [place] [address] Tel , Service support , Discharge Plan Triage Chief Complaint: Upper Extremity Injury ED Provider: Faraz Phillips Dx/Rx/DC Orders Prescriptions: No Action diltiazem HCl 240 MG capsule,extended release 24 hr 240 mg PO DAILY RF: 0 metoprolol tartrate 50 MG tablet 50 mg PO BID RF: 0 Zyrtec 10 MG capsule 10 mg PO DAILY RF: 0 fluticasone propionate [Flonase Allergy Relief] 9.9 ML spray,suspension 1 spray NS BID RF: 0 glipizide 2.5 mg Tablet Extended Release 24hr 2.5 mg PO DAILY RF: 0 warfarin 5 mg Tablet 5 mg PO DAILY RF: 0 Primary Care Provider: He Khanna
== END 2021-10-26 13:23 | disposition home or self-care (01) ==
PROVIDERS: Emergency Provider Emergency Medicine; PCP Family Medicine; Visit Provider Emergency Medicine
DX: S69.91XA Unspecified injury of right wrist, hand and finger(s), initial encounter (principal); E11.9 Type 2 diabetes mellitus without complications; E78.00 Pure hypercholesterolemia, unspecified; I10 Essential (primary) hypertension; Z86.718 Personal history of other venous thrombosis and embolism; I25.2 Old myocardial infarction; Z79.01 Long term (current) use of anticoagulants; Z79.899 Other long term (current) drug therapy; Z79.84 Long term (current) use of oral hypoglycemic drugs; Y93.01 Activity, walking, marching and hiking; Y99.9 Unspecified external cause status; W19.XXXA Unspecified fall, initial encounter; Y92.89 Other specified places as the place of occurrence of the external cause
CPT/HCPCS: 73110; 80048; 84550; 85025; 99284; A4216

== ENCOUNTER → 2021-12-25 | Outpatient (CLI) | payer MEDICARE, SELFPAY ==
[2021-12-25 12:52] LABS: ALB/GLOB Ratio 0.9 RATIO (0.9-2.4); AST(SGOT) 17 U/L (15-37); Alanine Aminotransfer ALT/SGPT 29 U/L (16-61); Albumin, Serum 3.4 g/dL (3.2-5.0); Alkaline Phosphatase 94 U/L (45-117); Anion Gap 6 (5-15); BUN 17 mg/dL (7-18); BUN/Creat Ratio 13.3 RATIO (10-20); Chloride 109 mmol/L (98-107); Cholesterol 233 mg/dL (200); Creatinine, Serum 1.28 mg/dL (0.70-1.30); EST Glomerular Filtration Rate 59 mL/min (>60); Est Glom Filt Rate - Afr Amer 71 mL/min (>60); Globulin 3.6 g/dL (2.2-4.2); Glucose 137 mg/dL (74-106); High Density Lipoprotein 29 mg/dL; Sodium Level 140 mmol/L (136-145); Triglycerides 233 mg/dL; Very Low Density Lipoprotein 47 mg/dL (5-40)
[2021-12-25 13:10] LABS: Hemoglobin A1c 7.7 % (3.8-5.6)
== END | disposition home or self-care (01) ==
LOC: MTLAB 09:37
PROVIDERS: PCP Family Medicine; Referring Provider Family Medicine; Visit Provider Family Medicine
DX: E11.21 Type 2 diabetes mellitus with diabetic nephropathy (principal); I10 Essential (primary) hypertension; R97.20 Elevated prostate specific antigen [PSA]
CPT/HCPCS: 36415; 80053; 80061; 83036; 84153

== ENCOUNTER → 2022-01-25 | Outpatient (CLI) | payer MEDICARE, SELFPAY ==
[2022-01-25 12:22] LABS: International Normalized Ratio 2.2; Prothrombin Time (Protime)PT. 24.4 SECONDS (11.7-14.9)
[2022-01-25 12:29] LABS: Anion Gap 4 (5-15); BUN 15 mg/dL (7-18); BUN/Creat Ratio 10.6 RATIO (10-20); Chloride 109 mmol/L (98-107); Creatinine, Serum 1.42 mg/dL (0.70-1.30); EST Glomerular Filtration Rate 52 mL/min (>60); Est Glom Filt Rate - Afr Amer 63 mL/min (>60); Glucose 186 mg/dL (74-106); Potassium 4.1 mmol/L (3.5-5.1); Sodium Level 138 mmol/L (136-145); Uric Acid 7.4 mg/dL (3.5-7.2)
== END | disposition home or self-care (01) ==
PROVIDERS: PCP Family Medicine; Referring Provider Family Medicine; Visit Provider Family Medicine
DX: N18.31 Chronic kidney disease, stage 3a (principal); M10.9 Gout, unspecified; Z79.01 Long term (current) use of anticoagulants
CPT/HCPCS: 36415; 80048; 84550; 85610

== ENCOUNTER → 2022-02-09 | Outpatient (CLI) | payer MEDICARE, SELFPAY ==
--- NOTE | 2022-02-09 13:30 | PROSBIL_PTH ---
PATIENT: PRAKASH MUELLER LOC: [facility] U#:[id number] AGE/SX: 72/M ROOM: RE02/09/[address]: Dr. Kaleb Romeo MD : 1950 BED: DIS: 02/09/2022 SPEC #: [id number] RECD: 02/09/22 16:29 STATUS: ANNETTE REWilliam #: [id number] DOMINIQUE: 02/09/22 13:[address]: Kaleb Romeo DEPT: SURGICAL PATHOLOGY RECD BY: Shantanu Olivares ENTERED: 02/10/22 07:32 SP TYPE: PROST BX MACIEL DR: Dr. He Khanna DO Tissues: A - PROSTATE RIGHT B - PROSTATE RIGHT C - PROSTATE RIGHT D - PROSTATE LEFT E - PROSTATE LEFT F - PROSTATE LEFT Procedures: PROSTATE BX HEADER OPERATION: Prostate biopsy PRE-OP DIAGNOSIS: R97.20 TISSUE SUBMITTED: A-Right apex, B-Right mid, C-Right base, D-Left apex, E-Left mid, F-Left base MICROSCOPIC DIAGNOSIS A. Right prostate, apex, core biopsy: Prostatic tissue, Negative for malignancy. B. Right prostate, mid, core biopsy: Prostatic adenocarcinoma. Cleveland grade: 3+3= 6 Number of cores involved: 1/1 Proportion of tissue involved: 60% Perineural invasion: Not identified. Greatest tumor length: 0.6 cm Focal high-grade prostatic intraepithelial neoplasia (HGPIN). C. Right prostate, base, core biopsy: Prostatic adenocarcinoma. Vanessa grade: 5+4= 9 Number of cores involved: 2/2 Proportion of tissue involved: 70% Perineural invasion: present, focal Greatest tumor length: 0.7 cm Focal chronic granulomatous chronic inflammation. See comment. D. Left prostate, apex, core biopsy: Prostatic tissue, Negative for malignancy. E. Left prostate, mid, core biopsy: Prostatic tissue, Negative for malignancy. F. Left prostate, base, core biopsy: Prostatic tissue, Negative for malignancy. COMMENT C. Focal tertiary pattern 3 is also noted. Case has been reviewed in consultation with Dr. Fried who concurs with the above diagnosis. IDC:AM MICROSCOPIC DESCRIPTION Slides are reviewed. GROSS DESCRIPTION A - Received is one container designated prostate, right apex. The specimen consists of one elongated fragments of light gregory-white soft tissue each measuring 1.0cm in length and 0.1 cm in diameter. The specimen is totally submitted in one cassette. B - Received is one container designated prostate, right mid. The specimen consists of one elongated fragments of light gregory-white soft tissue each measuring 1.0 cm in length and 0.1 cm in diameter. The specimen is totally submitted in one cassette. C - Received is one container designated prostate, right base. The specimen consists of two elongated fragments of light gregory-white soft tissue each measuring 1.5cm in length and 0.1 cm in diameter. The specimen is totally submitted in one cassette. D - Received is one container designated prostate, left apex. The specimen consists of one elongated fragments of light gregory-white soft tissue each measuring 1.0 cm in length and 0.1 cm in diameter. The specimen is totally submitted in one cassette. E - Received is one container designated prostate, left mid. The specimen consists of one elongated fragments of light gregory-white soft tissue each measuring 1.0cm in length and 0.1 cm in diameter. The specimen is totally submitted in one cassette. F - Received is one container designated prostate, left base. The specimen consists of one elongated fragments of light gregory-white soft tissue each measuring 1.0cm in length and 0.1 cm in diameter. The specimen is totally submitted in one cassette. / AM:taryn 02/10/22 TC:0 [facility]: [id number] x6
== END | disposition home or self-care (01) ==
PROVIDERS: PCP Family Medicine; Referring Provider Urology; Visit Provider Urology
DX: C61 Malignant neoplasm of prostate (principal)
CPT/HCPCS: 88305; G0416

== ENCOUNTER → 2022-03-08 | Outpatient (CLI) | payer MEDICARE, SELFPAY | END | disposition home or self-care (01) | LOC: RAD.FUTURE 10:13 | PROVIDERS: PCP Family Medicine; Referring Provider Urology; Visit Provider Urology | DX: C61 Malignant neoplasm of prostate (principal) ==

== ENCOUNTER → 2022-03-08 | Outpatient (CLI) | payer MEDICARE, SELFPAY ==
--- NOTE | 2022-03-08 09:12 | NM_ITS ---
CLINICAL: Male, 72 years old. MALIGNANT NEOPLASM OF PROSTATE NEW DX WHOLE BODY NUCLEAR BONE SCAN TECHNIQUE: Following the IV administration of 25.7 mCi of Tc MDP, whole body bone imaging was performed with a gamma camera following a three hour delay. COMPARISON STUDIES : NM - None. CR - Not available for review at this time. CT - Not available for review at this time. MR - Not available for review at this time. US - Not available for review at this time. FINDINGS: Mild degree of radiopharmaceutical uptake at the level of both knee joints as well as the shoulder joint suggestive of degenerative changes. No evidence of metastatic disease. NM/Bone Scan Whole Body IMPRESSION: No evidence of bony metastasis. Electronically Signed: Maninder Laurent MD at 12:53 EDT ,
== END | disposition home or self-care (01) ==
PROVIDERS: PCP Family Medicine; Referring Provider Urology; Visit Provider Urology
DX: C61 Malignant neoplasm of prostate (principal)
CPT/HCPCS: 78306; A9503

== ENCOUNTER 2022-04-14 11:20 | Observation (INO) | payer MEDICARE, SELFPAY ==
--- NOTE | 2022-04-06 09:52 | EKG12_ITS ---
Test Reason : PRE OP Blood Pressure : / mmHG Vent. Rate : 058 BPM Atrial Rate : 058 BPM P-R Int : 198 ms QRS Dur : 088 ms QT Int : 422 ms P-R-T Axes : 056 -44 016 degrees QTc Int : 414 ms Sinus bradycardia Left axis deviation Abnormal ECG Confirmed by LUDWIN AZEVEDO, SONY ([id number]), publishing editor ELIUD POWELL ([id number]) on 04/06/2022 1:42:24 PM Referred By: JAC Confirmed By:SONY MASCORRO MD
[2022-04-06 10:27] LABS: International Normalized Ratio 2.6; Prothrombin Time (Protime)PT. 27.5 SECONDS (11.7-14.9)
[2022-04-06 11:03] LABS: Hemoglobin A1c 6.4 % (3.8-5.6)
[2022-04-14] VITALS (10 sets, daily range): BP systolic 112–142; BP diastolic 54–74; PULSE 53–74; RESP 16–18; TEMP 36.3–36.9; O2SAT 94–100; BMI 30.4
[2022-04-14 10:50] LABS: INR Fingerstick 1.2; Prothrombin Time Fingerstick 14.7 SEC (11.7-14.9)
[2022-04-14] MEDS: Lactated Ringers 1,000 ML 75 ML IV (11:20)
--- NOTE | 2022-04-14 11:21 | DCINST_ITS ---
Discharge Instructions Diet Discharge Diet: No restrictions, Light diet - advance as tolerated and Soft diet Activity Discharge Activity: Return to Normal Activity and No Restrictions Dressing / Incision Catheter: Puri to leg bag and Puri to large bag Drain: [place] Follow Up Care Please Follow Up With: Kaleb Romeo MD When: 2 weeks Test Results: Test results from this visit will be discussed in further detail at your follow- up appointment, if applicable. Discharge Plan Admission Primary Reason for Your Visit: Radical prostatectomy Attending Provider: Kaleb Romeo Primary Care Provider: He Khanna Instructions Patient Instructions: Radical Prostatectomy Dc Discharge Orders/Prescriptions Prescriptions: New ciprofloxacin HCl [Cipro] 500 mg tablet 500 mg PO DAILY Qty: 14 0RF docusate sodium [Colace] 100 mg capsule 100 mg PO BID Qty: 20 0RF oxycodone-acetaminophen 5-325 mg tablet 1 tab PO Q6H PRN (Reason: pain) 7 Days Qty: 14 0RF Continued diltiazem HCl 240 MG capsule,extended release 24 hr 240 mg PO DAILY metoprolol tartrate 50 MG tablet 50 mg PO BID Zyrtec 10 MG capsule 10 mg PO DAILY fluticasone propionate [Flonase Allergy Relief] 9.9 ML spray,suspension 1 spray NS BID glipizide 2.5 mg Tablet Extended Release 24hr 2.5 mg PO BID loperamide 2 mg Capsule 2 mg PO DAILY Rx Instructions: administer after each loose stool until symptoms controlled; do not exceed 8 mg per 24 hrs allopurinol 100 mg tablet 100 mg PO BID Label Comments: TAKE 2 TABLETS BY MOUTH EVERY DAY Held warfarin 5 mg Tablet 5 mg PO DAILY Hold Instructions: Resume on 04/28/22. Other Ambulatory Orders: 12 Lead EKG (Routine) Timeframe: [id number] Location: None Selected Ordered By: Dr. Ayo Vasquez Referrals / Follow Up: Kaleb Romeo MD [Med Staff - Active Staff] - eH Khanna DO [Primary Care Provider] - Disposition Disposition (needs filled in before D/C Order can be placed): Home, Self Care
--- NOTE | 2022-04-14 11:21 | PCM.HP.STD ---
HPI - General HPI Narrative PRAKASH MUELLER, is a 72 M who presents for radical prostatectomy for prostate cancer [facility] Medical History (Updated 04/14/22 @ 11:[address] Kaleb Romeo MD) Cancer Diabetes DVT (deep venous thrombosis) Gout Heart attack High cholesterol History of stress test Hypercholesteremia Hypertension Non-smoker Pre-diabetes Wears glasses Home Medications cetirizine 10 mg capsule (Zyrtec) 10 mg PO DAILY 11/30/15 [History Last Taken Unknown] diltiazem HCl 240 mg capsule,24 hr,extended release 240 mg PO DAILY 11/30/15 [History Last Taken 04/14/22 07:00] metoprolol tartrate 50 mg tablet 50 mg PO BID 11/30/15 [History Last Taken 04/14/22 07:00] fluticasone propionate 50 mcg/actuation nasal spray,suspension (Flonase Allergy Relief) 1 spray NS BID 12/02/16 [History Last Taken Unknown] glipizide 2.5 mg tablet, extended release 24 hr 2.5 mg PO BID 10/26/21 [History Last Taken Unknown] warfarin 5 mg tablet 5 mg PO DAILY 10/26/21 [History Last Taken Unknown] allopurinol 100 mg tablet 100 mg PO BID 03/31/22 [History Last Taken Unknown] loperamide 2 mg capsule 2 mg PO DAILY 03/31/22 [History Last Taken Unknown] ciprofloxacin HCl 500 mg tablet (Cipro) 500 mg PO DAILY #14 tabs 04/14/22 [Rx Last Taken Unknown] docusate sodium 100 mg capsule (Colace) 100 mg PO BID #20 caps 04/14/22 [Rx Last Taken Unknown] oxycodone-acetaminophen 5 mg-325 mg tablet 1 tab PO Q6H PRN pain 7 days #14 tabs 04/14/22 [Rx Last Taken Unknown] Allergy/AdvReac Type Severity Reaction Status Date / Time Penicillins Allergy Unknown Verified 04/14/22 11:12 Surgical History (Updated 03/31/22 @ 09:08 by Iva Hernandez) History of ankle surgery History of cardiac catheterization Social History (Updated 10/26/21 @ 12:[address] Faraz Phillips DO) Smoking Status: Never smoker Vital Signs Vital Signs Vital Signs: 04/14/22 11:14 04/14/22 11:14 Temperature 97.3 F L Temperature Source Temporal Pulse Rate 63 Respiratory Rate 16 Respiratory Pattern Normal Blood Pressure 142/74 H Blood Pressure Mean 96 Blood Pressure Source Monitor Blood Pressure Position Semi-Fowlers Blood Pressure Location Right Arm Pulse Ox 98 Oxygen Delivery Method Room Air Weight Weight: 91 kg Body Mass Index (BMI) 30.4 Results Lab / Micro Data Labs: Laboratory Results - last 24 hr 04/14/22 10:45: POC PT 14.7, INR 1.2
[2022-04-14 11:55] LABS: Bedside Glucose 160 mg/dL (74-106)
[2022-04-14] MEDS: Cefazolin 2 GM in 0.9% Normal Saline 100 ML IV (11:56)
--- NOTE | 2022-04-14 12:35 | PROST_PTH ---
PATIENT: PRAKAHS MUELLER LOC: [facility] U#:[id number] AGE/SX: 72/M ROOM: CT320 RE04/14/[address]: Dr. Kaleb Romeo MD : 1950 BED: 1 DIS: 04/15/2022 SPEC #: [id number] RECD: 04/15/22 08:24 STATUS: ANNETTE BROOKE #: [id number] DOMINIQUE: 04/14/22 12:[address]: Kaleb Romeo DEPT: SURGICAL PATHOLOGY RECD BY: Augusta Ruiz ENTERED: 04/15/22 10:14 SP TYPE: PROSTATE OTHR DR: Dr. He Khanna, DO Tissues: A - Lymph node of pelvis, NOS B - Prostate, NOS Procedures: Surgery Specimen Level IV Surgery Specimen Level V Surgery Specimen Level HEADER OPERATION: Laparoscopic robotic radical prostatectomy with bilateral nerve sparing PRE-OP DIAGNOSIS: Malignant neoplasm of prostate, nodular prostate with lower urinary tract symptoms, elevated PSA TISSUE SUBMITTED: A ? Lymph node and fat around prostate, B - Prostate MICROSCOPIC DIAGNOSIS A. Pelvic lymph node, regional lymphadenectomy: One out of one lymph node, negative for carcinoma. Fat around prostate, excision: Mature adipose tissue, negative for carcinoma. B. Prostate, radical prostatectomy: Adenocarcinoma. See cancer synoptic report below. AM:tari 04/16/2022 COMMENT PROSTATE CANCER (RADICAL) SUMMARY: Procedure: Radical Prostatectomy Prostate Size: Weight: 62.4 gm Size: 5 x 4.5 x 3.5 cm Histologic Type: Adenocarcinoma Histologic Grade: Vanessa grade 9 Percent of Pattern 3: 5% Percent of Pattern 4: 35% Percent of Pattern 5: 60% Intraductal Carcinoma: Not identified Tumor Quantitation: 3.9 x 1.8 x 1.2 cm Extraprostatic Extension: Not identified Urinary Bladder Neck Invasion: Not identified Seminal Vesicle Invasion: Not identified Lymphvascular Invasion: Not identified Perineural Invasion: Present, frequent Margins: Free of carcinoma Regional Lymph Nodes: Number of lymph nodes: 1 out of 1 lymph node negative for carcinoma. Total number of lymph nodes examined: 1 Treatment Effect: Unknown Additional Pathologic Findings: Chronic inflammation and benign stromal hyperplasia. PATHOLOGIC STAGE: T2 N0 Mx The above summary is in compliance with [employer] (CAP) Cancer Protocols Checklist and [place] Joint Committee on Cancer (AJCC), Staging Manual, 8th Ed. Reference is made to the patient's previous prostate biopsies ([id number]) in which prostate adenocarcinoma Vanessa grade 9 (5+4) was identified. MICROSCOPIC DESCRIPTION Slides are reviewed. GROSS DESCRIPTION A - Received in fixative is one container labeled with the patient's name and designated lymph nodes and fat around prostate. The specimen consists of an elongated fragment of yellow fatty tissue measuring 10.5 x 2 x 0.8 cm. The specimen is sectioned and totally submitted in three cassettes. B - Received in fixative is one container labeled with the patient's name and designated prostate. The specimen consists of a radical prostatectomy specimen consisting of prostate and bilateral seminal vesicles. The specimen weighs 62.4 gm. The prostate measures 5 cm transversely, 3.5 cm anterior-posteriorly and 4.5 cm craniocaudally. The specimen is differentially inked as follows: entire posterior - black, right side prostate seminal vesicles - blue, left side prostate seminal vesicles - green, anterior - red. The specimen is serially sectioned from apex to base. No distinct mass lesion is identified. Serial sections reveal rubbery cut surfaces. The gland is serially sectioned (3-4 mm slices). [place]alker sections are submitted as follows: 1 - distal urethral?margin, shave, 2 - bladder neck shave, 3 - seminal vesicles, 4 - most basal section of prostate, 5??seminal vesicles, 6 - apex, 9-14 - mid portion of prostate, 15-18 - basal portion of prostate. / AM:tari 04/15/2022 TC:0 CPT: 22154, 66288, 53548
--- NOTE | 2022-04-14 14:45 | PCM.OPRPT ---
Report of Operation Date of Procedure: 04/14/22 Pre-Operative Diagnosis: Prostate cancer Post-Operative Diagnosis: The same Surgery/Procedure Performed:: Laparoscopic robotic assisted radical prostatectomy bilateral nerve sparing, pelvic lymph node dissection. Description of Surgical Findings:: Patient presented to the hospital for treatment of his prostate cancer with radical prostatectomy. In the preoperative setting we discussed the options of management for his prostate cancer including active surveillance, radiation treatments, radioactive seeds, and radical robotic prostatectomy. We discussed the side effects of surgery including the potential to lose erections. We discussed the potential to have bladder control problems with stress incontinence which can be temporary or permanent. We discussed the risk of the surgery including the risk of general anesthetic, risk of bleeding, risk of infection, and risk of formation of hernia either incisional hernia or inguinal hernia. After long discussion with the patient the preoperative setting and also reviewed this in the preop area patient signed the consent form and we proceeded with a radical prostatectomy. Patient was taken back to the operating room he was identified, time out procedure was performed and he was placed supine on the table he underwent general anesthesia with intubation. The abdomen was shaved prepped and draped in usual sterile fashion as well as the penis and testicles. A 16 Guatemalan catheter was placed into the bladder with clear return of urine. I then made an incision in the umbilicus and dissected down to the fascia advance a Veress needle into the peritoneal cavity and insufflated the peritoneal cavity with CO2 gas. I then placed a 12 mm trocar above the umbilicus. I then visualized the placement of the rest of the trochars, I placed a right arm robotic trocar, and air seal trocar, a suction port 5 mm trocar. And on the left side I placed 2 robotic arms. Once all the trochars were in placed the patient was put in steep Trendelenburg. And the robot was docked the arms were docked and then I placed the 0 degree camera through the robotic arm and also used a 30 degree camera during certain parts of the case. I used scissors in the right arm, prograsp in the third arm, and a bipolar in the second arm. Initial dissection was to free the sigmoid colon off the lateral wall this was done by meticulously dissecting off the peritoneum and the sigmoid colon off the left lateral wall. This then allowed the prograsp to retract the sigmoid colon out of the pelvis. I then went below the bladder and identified the vas deferens incised the peritoneum over the vas deferens and traced the vas deferens below the bladder to the prostate and identified the right and left vasa deferens. Below behind the vas deferens then the seminal vesicles were identified. I then dissected the seminal vesicle free using pinpoint electrocautery and then we identified the other seminal vesicle and then dissected this using pinpoint electrocautery I then elevated the vas deferens and several vesicles off the prostate and was able to sweep the Denonvilliers' fascia off the prostate posteriorly all the way up to the apex of the prostate. Working laterally I made sure I went as lateral as possible to sweep the Denonilliers' fascia off the posterior aspect of the prostate and worked my way back, I then transected the vas deferens and the left and right side the seminal vesicles were then dissected free. And then I pulled out of the pelvis. At this point the bladder was dropped creating the space of Retzius with the bladder on traction with the fourth arm. Using electrocautery I dissected in the anterior peritoneal fascia and then created the space of Retzius dissecting towards the prostate. The pelvic lymph node dissection was then performed both on the left and the right pelvic lymph nodes the nodes that were taken on the right side extended from the right iliac artery lateral pelvic sidewall up to the junction of the artery and the lymph nodes and down to the obturator nerve and then also below the flattening press operator nerve all the lymph nodes were removed during to remove those lymph nodes we used clips and electrocautery to control small blood vessels and also the control lymphatic. I then went to the left side and again did an extensive lymph node dissection starting of the left iliac artery extending the left iliac vein on the lateral sidewall down to the obturator nerve and the left side beyond the flattening press operator nerve down further behind it cleaning out all the lymphatic tissue all this tissue was sent off as a specimen we use clips and electrocautery during the dissection. At the end we cleaned out all the lymphatic tissue on the right pelvic wall and no lymphatic tissue in the left pelvic wall. The prostate was then cleaned of the fat over the prostate and the fourth arm was used to retract the bladder and place traction. I then identified the endopelvic fascia that was overlying the prostate on the right side I incised endopelvic fascia and wwept the levator muscles off the prostate all the way to the apex on the right side, I then worked my way anterior to the prostate then transected to the puboprostatic ligament and the underlying dorsal vein complex was not injured. I then went to the other side and identified the endopelvic fascia in the left side incised in a fashion the left side and swept the levator muscles off the prostate on the left side all the way up to the apex the puboprostatic ligament on the left side was then dissected and transected I then freed up the fascia overlying the dorsal vein complex. I then used the prograsp to encircled the dorsal vein complex with the prograsp and then switched over to the right and left needle school boat driver and suture ligated the dorsal vein complex above the prograsp. The prograsp was then placed back in the bladder and put back on traction I then identified the junction between the bladder and the prostate and dissected down between the bladder and the prostate untilI came across the catheter we then dissected posteriorly to the bladder and prostate to free the prostate and the bladder off each other and the muscles between the bladder and the prostate was then cauterized to free up the bladder. I then went on top of the prostate and identified the endopelvic fascia on top of the prostate this was incised all the way to the apex and then we swept the endopelvic fascia off the prostate laterally and then identified the plane between endopelvic fascia and the prosthetic pseudocapsule and swept the fascia laterally until reaching the course of the neurovascular bundles and then released the neurovascular bundles off the prostate laterally all the way back in a retrograde fashion back to the junction of the pedicles then the prostate was placed on traction with the fourth arm pulling the prostate laterally identified the pedicle to the prostate between the seminal vesicles and the and the neurovascular bundle and this was taken using sequential small hemolocks. After the pedicle was taken the I then dissected underneath the prostate sweeping the neurovascular bundle off the prostate we able to follow the nice smooth plane between the neurovascular bundle and the pseudocapsule all the way to the apex once this was identified we swept this up all the way up to the apex and there was perfect nerve sparing on the right side. Then went to the left side the prostate identified the endopelvic fascia over the left side of the prostate I incised the endopelvic fascia all the way to the apex and then swept this off laterally I then released the neurovascular bundles on the left side of the prostate sweeping him off the prostate laterally I then elevated the prostate up up with the prostate and traction identified the pedicle to the prostate on the left side and then the pedicles taken with sequential Hem-o-richard clips I then was able to dissected the neurovascular bundle off the left posterior aspect the prostate this was a perfect dissection all the way up on the left side following the pseudocapsule all the way up the left side until we reached the apex of the prostate. After the both the neurovascular bundles has been swept off the posterior to the prostate I then went above and transected the dorsal vein complex there was minimal to no bleeding but then dissected down to the urethra and circumfencial dissected around the urethra I then switched the right and left arm with the needle drivers and I suture-ligated the dorsal vein complex again just to ensure that there was no bleeding from the dorsal vein complex. I then transected through the urethra with scissors and the prostate was then freed and released off the prostate bed and put an Endo Catch bag. At this point the bladder neck was reconstructed and then an anastomosis was performed between the prostate and the bladder with a 3 oh V-Loc stitch in a running fashion starting from the bladder neck at the 6 o'clock position working to the 12 o'clock position with continuous stitches to complete a perfect anastomosis between the bladder and the prostate. I then placed a new catheter into the bladder, an 18 Guatemalan sycuan tip catheter flushed the bladder and there was no leakage from the anastomosis I put 10 cc in the balloon and pulled it up pulled back gently. I then ensured that there was no bleeding from the dorsal vein complex no bleeding from the neurovascular bundles FloSeal was placed as necessary once hemostasis was ensured and adequate then I placed the bladder back in position in the pelvis the prostate was exchanged to the camera port I closed the air seal port with a 10 12 Jerry Quiros stitch. And the extracted the prostate through the umbilicus. The robot was undocked all the ports were removed under direct visualization then closed the extraction site with 0 Vicryl with a CT1 needle once the extraction site was closed. I then closed all the incision with subcuticular stitches with 4-0 Monocryl and then bandages were placed on the incisions catheter was flushed to make sure it was draining well there was no clots and it was crystal clear patient's anesthetic was reversed he was extubated and taken back to the PACU in stable condition all the needles and sponges and instruments were accounted for. Blood loss was minimal and the drain was a 18 Guatemalan Cherry catheter. No other surgical drain was left. I was present during the entire case. Surgeon: Kaleb Romeo Type of Anesthesia: General Drains: 18 fr cherry Estimated Blood Loss (mL): 50cc Admit VTE Documentation VTE Present on Admission: No VTE Mechan Device Prophylaxis: SCD's VTE Pharm Prophylaxis ordered?: No
[2022-04-14 15:35] LABS: Bedside Glucose 182 mg/dL (74-106)
[2022-04-14] MEDS: Ketorolac 15 MG/ML Vial IV (17:30)
[2022-04-14] MEDS: Ciprofloxacin 400 MG/200 ML BAG 200 MG IV (21:59)
[2022-04-14] MEDS: glipiZIDE 2.5 MG TAB.ER.24 PO (22:00)
[2022-04-14] MEDS: Metoprolol Tartrate 50 MG Tablet PO (22:00)
[2022-04-14] MEDS: Fluticasone 0.05% 1 SPRAY NASAL.SRY NASAL (22:01)
[2022-04-14] MEDS: Docusate Sodium 100 MG Capsule 200 MG PO (22:01)
[2022-04-14] MEDS: Allopurinol 100 MG Tablet PO (22:01)
[2022-04-14] MEDS: Acetaminophen 325 MG Tablet PO (22:19)
[2022-04-15 00:39] VITALS: BP 128/72; PULSE 75; RESP 18; TEMP 36.9; O2SAT 94
[2022-04-15] MEDS: Lactated Ringers 1,000 ML 75 ML IV (00:45)
[2022-04-15 05:22] VITALS: BP 136/74; PULSE 89; RESP 18; TEMP 36.6; O2SAT 92
--- NOTE | 2022-04-15 07:25 | PCM.PN.GU ---
Subjective Subjective Status post radical prostatectomy did well no problems or issues overnight, he does a history of blood clots we will hold his Coumadin for high risk of bleeding after major surgery but I told the patient he can take a baby aspirin at home to help prevent DVTs if he has any issues he can call me immediately we could always consider doing Lovenox shots as well if he starts getting any signs of DVTs. Objective Data Objective Data Vital Signs: Vital Signs Temp Pulse Resp BP Pulse Ox O2 Del Method O2 Flow Rate 97.9 F 89 18 136/74 H 92 Room Air 6 04/15/22 05:22 04/15/22 05:22 04/15/22 05:22 04/15/22 05:22 04/15/22 05:22 04/15/22 05:22 04/15/22 05:22 Oxygen Flow Rate (L/min) 6 Oxygen Delivery Method Room Air Weight: 91 kg Body Mass Index (BMI) 30.4 Intake & Output: Intake and Output for Last 24 Hours 04/13/22 04/14/22 04/15/22 23:59 23:59 23:59 Intake Total 560 / 1560 1999 Output Total 430 / 605 290 / 290 Balance 130 / 955 1710 / 1710 Lab / Micro Data Labs: Laboratory Results - last 24 hr 04/14/22 10:45: POC PT 14.7, INR 1.2 04/14/22 10:57: POC Glucose 160 H 04/14/22 15:14: POC Glucose 182 H
[2022-04-15 08:10] VITALS: BP 146/79; PULSE 71; RESP 18; TEMP 36.4; O2SAT 94
[2022-04-15] MEDS: glipiZIDE 2.5 MG TAB.ER.24 PO (08:19)
[2022-04-15] MEDS: Ciprofloxacin 400 MG/200 ML BAG 200 MG IV (08:28)
[2022-04-15] MEDS: dilTIAZem CD 240 MG Capsule PO (08:29)
[2022-04-15] MEDS: Loratadine 10 MG Tablet PO (08:29)
[2022-04-15] MEDS: Docusate Sodium 100 MG Capsule 200 MG PO (08:29)
[2022-04-15 08:30] VITALS: BP 146/79; PULSE 71
[2022-04-15] MEDS: Metoprolol Tartrate 50 MG Tablet PO (08:30)
[2022-04-15] MEDS: Fluticasone 0.05% 1 SPRAY NASAL.SRY NASAL (08:30)
[2022-04-15] MEDS: Allopurinol 100 MG Tablet PO (08:30)
[2022-04-15] MEDS: Acetaminophen 325 MG Tablet PO (08:38)
[2022-04-15 11:56] VITALS: BP 133/74; PULSE 71; RESP 18; TEMP 36.6; O2SAT 94
== END 2022-04-15 12:44 | disposition home or self-care (01) ==
LOC: SDC 14:11 → MS3 14:11
PROVIDERS: Anesthesiology; Admitting Provider Urology; PCP Family Medicine; Referring Provider Urology; Visit Provider Urology
PROC: 0VT04ZZ Resection of Prostate, Percutaneous Endoscopic Approach (ICD-10-PCS; CPT 55866; principal; 2022-04-14 12:15)
DX: C61 Malignant neoplasm of prostate (principal); E11.9 Type 2 diabetes mellitus without complications; E78.00 Pure hypercholesterolemia, unspecified; I10 Essential (primary) hypertension; Z79.899 Other long term (current) drug therapy; Z79.01 Long term (current) use of anticoagulants; Z79.84 Long term (current) use of oral hypoglycemic drugs; M10.9 Gout, unspecified; Z86.718 Personal history of other venous thrombosis and embolism; I25.2 Old myocardial infarction
CPT/HCPCS: 55866; 36415; 36416; 82962; 83036; 85610; 88305; 88307; 88309; 93005; 96361; 96365; 96366; 96375; 99218; 99251; J7120; G0378; G0463; J0744; J2405

== ENCOUNTER → 2022-09-02 | Outpatient (CLI) | payer MEDICARE, SELFPAY ==
[2022-09-02 09:15] LABS: International Normalized Ratio 2.4; Prothrombin Time (Protime)PT. 25.6 SECONDS (11.7-14.9)
[2022-09-02 09:39] LABS: BUN 21 mg/dL (7-18); Creatinine, Serum 1.33 mg/dL (0.70-1.30); EST Glomerular Filtration Rate 56 mL/min (>60); Glucose 133 mg/dL (74-106)
[2022-09-02 09:40] LABS: Anion Gap 7 (5-15); BUN/Creat Ratio 15.8 RATIO (10-20); Calcium,Total 8.8 mg/dL (8.5-10.1); Chloride 109 mmol/L (98-107); Est Glom Filt Rate - Afr Amer 68 mL/min (>60); PSA,Total- Diagnostic < 0.01 ng/mL (0.0-4.0); Potassium 3.9 mmol/L (3.5-5.1); Sodium Level 140 mmol/L (136-145)
== END | disposition home or self-care (01) ==
LOC: LAB 08:13
PROVIDERS: PCP Family Medicine; Referring Provider Family Medicine; Visit Provider Family Medicine
DX: I10 Essential (primary) hypertension (principal); E11.21 Type 2 diabetes mellitus with diabetic nephropathy; C61 Malignant neoplasm of prostate; Z79.01 Long term (current) use of anticoagulants
CPT/HCPCS: 36415; 80048; 83036; 84153; 85610

== ENCOUNTER → 2023-03-07 | Outpatient (CLI) | payer MEDICARE, SELFPAY ==
[2023-03-07 13:18] LABS: PSA,Total- Diagnostic 0.03 ng/mL (0.0-4.0)
== END | disposition home or self-care (01) ==
LOC: LAB 11:49
PROVIDERS: PCP Family Medicine; Referring Provider Urology; Visit Provider Urology
DX: C61 Malignant neoplasm of prostate (principal)
CPT/HCPCS: 36415; 84153

== ENCOUNTER → 2023-03-23 | Outpatient (CLI) | payer MEDICARE, SELFPAY ==
[2023-03-23 11:00] LABS: Absolute Lymphocyte Count 1.15 X10^3/uL (0.83-4.51); Absolute Neutrophil Count 4.5 X10^3/uL (2.0-7.7); Basophil# 0.02 X10^3/uL; Basophil% 0.3 % (0-1); Eosinophil# 0.19 X10^3/uL; Eosinophils% 2.9 % (0-5); Hematocrit 46.9 % (40-54); Hemoglobin 15.6 g/dL (13.0-16.5); Lymphocyte # 1.15 X10^3/ul (0.83-4.51); Lymphocyte % 17.8 % (19-41); Mean Corp Hgb Conc 33.3 g/dL (32-36); Mean Corpuscular Hgb 28.6 pg (27.0-32.0); Mean Corpuscular Volume 86.1 fL (80-94); Mean Platelet Vol. 10.3 fl (6.2-12.0); Monocyte# 0.62 X10^3/uL; Monocyte% 9.6 % (0-10); NRBC Flagged by Analyzer 0 % (0-5); Neutrophil # 4.45 X10^3/uL (2.7-7.7); Neutrophil % 68.9 % (47-70); Platelet Count 174 K/mm3 (150-450); RBC Distribution Width CV 14.2 % (11.6-14.6); RBC Distribution Width SD 44.7 fl (35.1-43.9); Red Blood Count 5.45 M/mm3 (4.6-6.2); White Blood Count 6.5 K/mm3 (4.4-11.0)
[2023-03-23 11:11] LABS: Prothrombin Time (Protime)PT. 40.7 SECONDS (11.7-14.9)
[2023-03-23 11:20] LABS: International Normalized Ratio 4.1
[2023-03-23 11:24] LABS: AST(SGOT) 24 U/L (15-37); Alanine Aminotransfer ALT/SGPT 36 U/L (16-61); Albumin, Serum 3.7 g/dL (3.2-5.0); Alkaline Phosphatase 115 U/L (45-117); Anion Gap 3 (5-15); BUN 17 mg/dL (7-18); BUN/Creat Ratio 12.3 RATIO (10-20); Chloride 109 mmol/L (98-107); Cholesterol 222 mg/dL (200); Creatinine, Serum 1.38 mg/dL (0.70-1.30); EST Glomerular Filtration Rate 54 mL/min (>60); Est Glom Filt Rate - Afr Amer 65 mL/min (>60); Globulin 3.8 g/dL (2.2-4.2); Glucose 135 mg/dL (74-106); High Density Lipoprotein 32 mg/dL; Potassium 4.2 mmol/L (3.5-5.1); Protein, Total 7.5 g/dL (6.4-8.2); Sodium Level 138 mmol/L (136-145); Triglycerides 216 mg/dL; Uric Acid 5.7 mg/dL (3.5-7.2); Very Low Density Lipoprotein 43 mg/dL (5-40)
[2023-03-23 11:28] LABS: Hemoglobin A1c 6.7 % (3.8-5.6)
[2023-03-23 11:30] LABS: Microalbumin,Random Urine 94.9 mg/L (NO RANGE EST.); Microalbumin:Creatinine Ratio 72.4 mg/g CRE (<30 mg/g CRE)
== END | disposition home or self-care (01) ==
LOC: LAB 10:36
PROVIDERS: PCP Family Medicine; Referring Provider Family Medicine; Visit Provider Family Medicine
DX: E11.21 Type 2 diabetes mellitus with diabetic nephropathy (principal); E11.22 Type 2 diabetes mellitus with diabetic chronic kidney disease; N18.31 Chronic kidney disease, stage 3a; I12.9 Hypertensive chronic kidney disease with stage 1 through stage 4 chronic kidney disease, or unspecified chronic kidney disease; E78.5 Hyperlipidemia, unspecified; M10.9 Gout, unspecified; Z79.01 Long term (current) use of anticoagulants
CPT/HCPCS: 36415; 80053; 80061; 82043; 82570; 83036; 84550; 85025; 85610

== ENCOUNTER → 2023-07-05 | Outpatient (CLI) | payer MEDICARE, SELFPAY ==
[2023-07-05 12:52] LABS: PSA,Total- Diagnostic 0.08 ng/mL (0.0-4.0)
== END | disposition home or self-care (01) ==
LOC: LAB 11:16
PROVIDERS: PCP Family Medicine; Referring Provider Nurse Practitioner; Visit Provider Nurse Practitioner
DX: C61 Malignant neoplasm of prostate (principal)
CPT/HCPCS: 36415; 84153

== ENCOUNTER → 2023-10-28 | Outpatient (CLI) | payer MEDICARE, SELFPAY | END | disposition home or self-care (01) | LOC: LAB.FUTURE 08:08 | PROVIDERS: PCP Family Medicine; Visit Provider Urology | DX: C61 Malignant neoplasm of prostate (principal) ==

== ENCOUNTER → 2023-10-28 | Outpatient (CLI) | payer MEDICARE, SELFPAY ==
[2023-10-28 12:43] LABS: Absolute Lymphocyte Count 1.26 X10^3/uL (0.83-4.51); Absolute Neutrophil Count 4.7 X10^3/uL (2.0-7.7); Basophil# 0.01 X10^3/uL; Basophil% 0.1 % (0-1); Eosinophil# 0.21 X10^3/uL; Eosinophils% 3.1 % (0-5); Hematocrit 47.1 % (40-54); Hemoglobin 15.5 g/dL (13.0-16.5); Lymphocyte # 1.26 X10^3/ul (0.83-4.51); Lymphocyte % 18.6 % (19-41); Mean Corp Hgb Conc 32.9 g/dL (32-36); Mean Corpuscular Hgb 28.4 pg (27.0-32.0); Mean Corpuscular Volume 86.3 fL (80-94); Mean Platelet Vol. 11.1 fl (6.2-12.0); Microalbumin,Random Urine 97.7 mg/L (NO RANGE EST.); Microalbumin:Creatinine Ratio 45.2 mg/g CRE (<30 mg/g CRE); Monocyte# 0.61 X10^3/uL; NRBC Flagged by Analyzer 0 % (0-5); Neutrophil # 4.68 X10^3/uL (2.7-7.7); Neutrophil % 68.9 % (47-70); Platelet Count 174 K/mm3 (150-450); RBC Distribution Width CV 14.4 % (11.6-14.6); RBC Distribution Width SD 45.1 fl (35.1-43.9); Red Blood Count 5.46 M/mm3 (4.6-6.2); White Blood Count 6.8 K/mm3 (4.4-11.0)
[2023-10-28 12:47] LABS: International Normalized Ratio 2.1; Prothrombin Time (Protime)PT. 23.4 SECONDS (11.7-14.9)
[2023-10-28 13:07] LABS: AST(SGOT) 22 U/L (15-37); Alanine Aminotransfer ALT/SGPT 29 U/L (16-61); Albumin, Serum 3.7 g/dL (3.2-5.0); Alkaline Phosphatase 108 U/L (45-117); Anion Gap 7 (5-15); BUN 22 mg/dL (7-18); BUN/Creat Ratio 16.7 RATIO (10-20); Calcium,Total 8.9 mg/dL (8.5-10.1); Chloride 108 mmol/L (98-107); Cholesterol 233 mg/dL (200); Creatinine, Serum 1.32 mg/dL (0.70-1.30); EST Glomerular Filtration Rate 56 mL/min (>60); Est Glom Filt Rate - Afr Amer 68 mL/min (>60); Globulin 3.6 g/dL (2.2-4.2); Glucose 121 mg/dL (74-106); High Density Lipoprotein 28 mg/dL; PSA,Total- Diagnostic 0.13 ng/mL (0.0-4.0); Protein, Total 7.3 g/dL (6.4-8.2); Sodium Level 138 mmol/L (136-145); Triglycerides 191 mg/dL; Uric Acid 6.2 mg/dL (3.5-7.2); Very Low Density Lipoprotein 38 mg/dL (5-40)
[2023-10-28 13:35] LABS: Hemoglobin A1c 6.6 % (3.8-5.6)
== END | disposition home or self-care (01) ==
LOC: BFHLAB 10:04
PROVIDERS: PCP Family Medicine; Visit Provider Family Medicine
DX: E11.21 Type 2 diabetes mellitus with diabetic nephropathy (principal); C61 Malignant neoplasm of prostate; E11.22 Type 2 diabetes mellitus with diabetic chronic kidney disease; N18.31 Chronic kidney disease, stage 3a; I12.9 Hypertensive chronic kidney disease with stage 1 through stage 4 chronic kidney disease, or unspecified chronic kidney disease; E78.5 Hyperlipidemia, unspecified; Z79.01 Long term (current) use of anticoagulants; M10.9 Gout, unspecified
CPT/HCPCS: 36415; 80053; 80061; 82043; 82570; 83036; 84153; 84550; 85025; 85610

== ENCOUNTER → 2024-01-31 | Outpatient (CLI) | payer MEDICARE, SELFPAY ==
--- NOTE | 2024-01-31 08:30 | PET_ITS ---
EXAMINATION: Ga [address] ? INDICATIONS: 74-year-old male with a history of primary prostate carcinoma, presenting for restaging examination. ? COMPARISON EXAMINATION: None available. ? TECHNIQUE: Following the intravenous administration of 9.32 mCi of Ga 68 PSMA via the left hand, multiplanar image acquisitions of the head, neck, chest, abdomen and pelvis to the level of the midthigh, obtained at 73 minutes post tracer distribution reveal: ? The examination was interpreted using the EANM (Santa et al., Journal of Nuclear Medicine Molecular Imaging 44:1622, 2017) and PROMISE (José Luis et al., Journal of Nuclear Medicine 59:469, 2018) interpretive criteria. ? HEIGHT:?? 66 inches WEIGHT:?? 200 pounds ? PSMA expression score PROMISE criteria: High (3): SUV > parotid-salivary gland, intermediate (2): SUV > liver, low (1): > blood pool, < liver, (0): < blood pool. ? SUV reference values: Parotid glands 31.53. Normal liver parenchyma 8.92 blood pool 2.1. ? FINDINGS: ? HEAD/NECK:? Symmetric radiopharmaceutical concentration is defined in the bilateral parotid and submandibular glands. Physiologic tracer uptake is noted in the nasal cavity. ? There is no evidence of abnormal increased tracer uptake within the context of the cranial vault. ? CHEST:? There is no quantitative scintigraphic evidence of abnormal increased radiopharmaceutical concentration within the context of the bilateral hemithorax pulmonary parenchyma, right and left hemithorax at the pleural interface, mediastinal structures, and left-right thoracic perihilum. ? CT of the chest demonstrates the following anatomic characteristics: Subtle increased tracer uptake is noted in the left upper anterior lung zone, left upper lobe generating a calculated standard uptake value of 1.38. The PROMISE Score is 1. Coronary artery calcification is observed. Atherosclerotic calcification is defined in the thoracic aorta without evidence of dilatation, aneurysm formation. Bilateral axillary and mediastinal soft tissue densities demonstrate no evidence of increased tracer uptake. There are no parenchymal densities-nodules defined in the right and left hemithorax with quantitatively significant increased tracer uptake. ? ABDOMEN/PELVIS:? Uniform, homogeneous radiopharmaceutical concentration is defined in the hepatic and splenic parenchyma, visualization of the bilateral renal units, urinary bladder, and visualized intestinal tract. ? CT of the abdomen and pelvis is remarkable for the following: Calcified phlebolith formation is noted in the left lower hemipelvis. Colonic diverticulosis is noted without evidence of diverticulitis. Atherosclerotic calcification is defined in the abdominal aorta without evidence of dilatation, aneurysm formation. Abdominal-pelvic arterial calcification is observed. Calcification is noted within the right renal unit. A fat containing right inguinal hernia is noted. Right and left inguinal soft tissue densities are nontracer avid. ? SKELETAL:? There is no evidence of quantitatively significant enhanced radiopharmaceutical metabolism on meticulous inspection of the appendicular and axial skeletal structures. ? Degenerative changes defined in the thoracic and lumbar spine demonstrate no evidence of increased glucose metabolism. There are no sclerotic, mixed sclerotic-lytic, or primarily lytic changes defined in the axial skeletal structures with evidence of increased FDG uptake. ? PET/PET/CT Tumor Base -Thigh Subs IMPRESSION: ? 1. NEGATIVE EXAMINATION. There is no definitive quantitative scintigraphic evidence of recurrent-metastatic viable neoplasm. Accurate Quantification of SUVs and standardized PROMISE scores for this report are calculated using the exclusive [employer], ([place] Patent No. [id number] [id number] [phone] [place] patent [phone] ). Standardization and correction of the FDG SUV metric exclusively available with [employer] intellectual property, allow for vendor non-specific objective quantitative sequential FDG PET-CT comparison and otherwise unobtainable optimization of the sensitivity and specificity of the examination. [email or web address] Electronically Signed: Diogo Hair DO at 8:28 EDT ,
== END | disposition home or self-care (01) ==
PROVIDERS: PCP Family Medicine; Referring Provider Urology; Visit Provider Urology
DX: C61 Malignant neoplasm of prostate (principal)
CPT/HCPCS: 78815; A9595

== ENCOUNTER → 2024-02-07 | Outpatient (CLI) | payer MEDICARE, SELFPAY ==
[2024-02-07 12:10] LABS: PSA,Total - Annual Screen 0.24 ng/mL (0.00-4.00)
== END | disposition home or self-care (01) ==
LOC: LAB 09:07
PROVIDERS: PCP Family Medicine; Referring Provider Urology; Visit Provider Urology
DX: C61 Malignant neoplasm of prostate (principal)
CPT/HCPCS: 36415; 84153; G0103

== ENCOUNTER → 2024-03-27 | Outpatient (CLI) | payer MEDICARE, SELFPAY ==
[2024-03-27 12:09] LABS: Absolute Lymphocyte Count 1.53 X10^3/uL (0.83-4.51); Absolute Neutrophil Count 4.4 X10^3/uL (2.0-7.7); Basophil# 0.03 X10^3/uL; Basophil% 0.4 % (0-1); Eosinophil# 0.21 X10^3/uL; Eosinophils% 3.1 % (0-5); Hematocrit 47.6 % (40-54); Hemoglobin 15.6 g/dL (13.0-16.5); Lymphocyte # 1.53 X10^3/ul (0.83-4.51); Lymphocyte % 22.4 % (19-41); Mean Corp Hgb Conc 32.8 g/dL (32-36); Mean Corpuscular Hgb 28.6 pg (27.0-32.0); Mean Corpuscular Volume 87.2 fL (80-94); Mean Platelet Vol. 10.4 fl (6.2-12.0); Monocyte% 8.8 % (0-10); NRBC Flagged by Analyzer 0 % (0-5); Neutrophil # 4.41 X10^3/uL (2.7-7.7); Neutrophil % 64.7 % (47-70); Platelet Count 177 K/mm3 (150-450); RBC Distribution Width CV 13.9 % (11.6-14.6); RBC Distribution Width SD 44.3 fl (35.1-43.9); Red Blood Count 5.46 M/mm3 (4.6-6.2); White Blood Count 6.8 K/mm3 (4.4-11.0)
[2024-03-27 12:31] LABS: Hemoglobin A1c 6.6 % (3.8-5.6)
[2024-03-27 12:42] LABS: Vitamin B12 559 pg/mL (211-911)
[2024-03-27 12:44] LABS: Microalbumin:Creatinine Ratio 60.7 mg/g CRE (<30 mg/g CRE)
[2024-03-27 12:49] LABS: AST(SGOT) 24 U/L (15-37); Alanine Aminotransfer ALT/SGPT 36 U/L (16-61); Albumin, Serum 3.7 g/dL (3.2-5.0); Alkaline Phosphatase 123 U/L (45-117); Anion Gap 4 (5-15); BUN 20 mg/dL (7-18); BUN/Creat Ratio 13.9 RATIO (10-20); Calcium,Total 9.5 mg/dL (8.5-10.1); Chloride 106 mmol/L (98-107); Cholesterol 217 mg/dL (200); Creatinine, Serum 1.44 mg/dL (0.70-1.30); EST Glomerular Filtration Rate 51 mL/min (>60); Est Glom Filt Rate - Afr Amer 62 mL/min (>60); Globulin 3.6 g/dL (2.2-4.2); Glucose 143 mg/dL (74-106); High Density Lipoprotein 26 mg/dL; PSA,Total- Diagnostic 0.33 ng/mL (0.0-4.0); Protein, Total 7.3 g/dL (6.4-8.2); Sodium Level 138 mmol/L (136-145); Triglycerides 264 mg/dL; Uric Acid 6.9 mg/dL (3.5-7.2); Very Low Density Lipoprotein 53 mg/dL (5-40)
== END | disposition home or self-care (01) ==
LOC: LAB 11:06
PROVIDERS: PCP Family Medicine; Referring Provider Urology; Visit Provider Urology
DX: E11.21 Type 2 diabetes mellitus with diabetic nephropathy (principal); C61 Malignant neoplasm of prostate; E11.22 Type 2 diabetes mellitus with diabetic chronic kidney disease; N18.31 Chronic kidney disease, stage 3a; I12.9 Hypertensive chronic kidney disease with stage 1 through stage 4 chronic kidney disease, or unspecified chronic kidney disease; E78.5 Hyperlipidemia, unspecified; M10.9 Gout, unspecified; R53.83 Other fatigue
CPT/HCPCS: 36415; 80053; 80061; 82043; 82570; 82607; 83036; 84153; 84443; 84550; 85025

== ENCOUNTER → 2024-08-16 | Outpatient (CLI) | payer MEDICARE, SELFPAY ==
[2024-08-16 10:32] LABS: PSA,Total- Diagnostic < 0.01 ng/mL (0.0-4.0)
== END | disposition home or self-care (01) ==
PROVIDERS: PCP Family Medicine; Referring Provider Nurse Practitioner; Visit Provider Nurse Practitioner
DX: C61 Malignant neoplasm of prostate (principal)
CPT/HCPCS: 36415; 84153

== ENCOUNTER → 2024-09-26 | Outpatient (CLI) | payer MEDICARE, SELFPAY ==
[2024-09-26 16:40] LABS: Cholesterol 223 mg/dL (<=200); High Density Lipoprotein 29 mg/dL; Low Density Lipoprotein Calc. 131 mg/dL; Triglycerides 314 mg/dL; Uric Acid 5.2 mg/dL (3.5-7.2); Very Low Density Lipoprotein 63 mg/dL (5-40); cholesterol:hdl ratio screen 7.74
[2024-09-26 18:00] LABS: Hemoglobin A1c 6.7 % (<=5.6)
[2024-09-26 18:01] LABS: ALB/GLOB Ratio 1.3 RATIO (0.9-2.4); AST(SGOT) 34 U/L (<=37); Alanine Aminotransfer ALT/SGPT 31 U/L (<=46); Albumin, Serum 4.1 g/dL (3.4-4.8); Alkaline Phosphatase 119 U/L (40-129); Anion Gap 12 (5-15); BUN 19 mg/dL (4-19); Calcium,Total 9.5 mg/dL (7.6-11.0); Carbon Dioxide 22.6 mmol/L (21.0-32.0); Chloride 104 mmol/L (98-108); Creatinine, Serum 1.21 mg/dL (0.70-1.20); EST Glomerular Filtration Rate 63 (>60); Globulin 3.3 g/dL (2.2-4.2); Glucose 151 mg/dL (70-99); Potassium 4.1 mmol/L (3.3-5.1); Protein, Total 7.3 g/dL (5.9-8.4); Sodium Level 138 mmol/L (133-145); Total Bilirubin 1.13 mg/dL (0.00-1.30)
== END | disposition home or self-care (01) ==
LOC: LAB 11:44
PROVIDERS: PCP Family Medicine; Referring Provider Family Medicine; Visit Provider Family Medicine
DX: E11.21 Type 2 diabetes mellitus with diabetic nephropathy (principal); I10 Essential (primary) hypertension; M10.9 Gout, unspecified
CPT/HCPCS: 36415; 80053; 80061; 82043; 82570; 83036; 84550

== ENCOUNTER → 2025-02-20 | Outpatient (CLI) | payer MEDICARE, SELFPAY ==
[2025-02-20 12:09] LABS: PSA,Total- Diagnostic < 0.02 ng/mL (0.00-4.00)
== END | disposition home or self-care (01) ==
LOC: LAB 10:10
PROVIDERS: PCP Family Medicine; Referring Provider Urology; Visit Provider Urology
DX: C61 Malignant neoplasm of prostate (principal)
CPT/HCPCS: 36415; 84153

== ENCOUNTER → 2025-03-29 | Outpatient (CLI) | payer MEDICARE, SELFPAY ==
[2025-03-29 12:20] LABS: Hematocrit 39.5 % (40-54); Hemoglobin 13.5 g/dL (13.0-16.5); Immature Granulocytes Count 0.030 X10^3/uL (0.0-0.0); Mean Corp Hgb Conc 34.2 g/dL (32-36); Mean Corpuscular Volume 87.2 fL (80-94); Mean Platelet Vol. 9.9 fl (6.2-12.0); NRBC Flagged by Analyzer 0 % (0-5); Platelet Count 182 K/mm3 (150-450); RBC Distribution Width CV 13.2 % (11.6-14.6); RBC Distribution Width SD 42.0 fl (35.1-43.9); Red Blood Count 4.53 M/mm3 (4.6-6.2); White Blood Count 5.8 K/mm3 (4.4-11.0)
[2025-03-29 12:24] LABS: Prothrombin Time (Protime)PT. 27.9 SECONDS (11.7-14.9)
[2025-03-29 12:48] LABS: AST(SGOT) 41 U/L (<=37); Alanine Aminotransfer ALT/SGPT 42 U/L (<=46); Albumin, Serum 3.9 g/dL (3.4-4.8); Alkaline Phosphatase 113 U/L (40-129); Anion Gap 14 (5-15); BUN 21 mg/dL (4-19); BUN/Creat Ratio 18.8 RATIO (10-20); Calcium,Total 9.2 mg/dL (7.6-11.0); Carbon Dioxide 19.1 mmol/L (21.0-32.0); Chloride 105 mmol/L (98-108); Cholesterol 214 mg/dL (<=200); Globulin 3.2 g/dL (2.2-4.2); Glucose 151 mg/dL (70-99); Low Density Lipoprotein Calc. 122 mg/dL; Potassium 4.2 mmol/L (3.3-5.1); Triglycerides 322 mg/dL; Very Low Density Lipoprotein 64 mg/dL (5-40); cholesterol:hdl ratio screen 7.75
== END | disposition home or self-care (01) ==
LOC: LAB 11:43
PROVIDERS: PCP Family Medicine; Referring Provider Family Medicine; Visit Provider Family Medicine
DX: E11.21 Type 2 diabetes mellitus with diabetic nephropathy (principal); E11.22 Type 2 diabetes mellitus with diabetic chronic kidney disease; N18.31 Chronic kidney disease, stage 3a; I12.9 Hypertensive chronic kidney disease with stage 1 through stage 4 chronic kidney disease, or unspecified chronic kidney disease; Z51.81 Encounter for therapeutic drug level monitoring
CPT/HCPCS: 36415; 80053; 80061; 83036; 85025; 85610